=== PATIENT | male | born 1955 | race Caucasian/White ===

== ENCOUNTER 2019-09-21 19:36 | Emergency (ER) | payer MEDICARE, MEDICAID, SELFPAY ==
--- NOTE | 2019-09-21 19:38 | ED_ITS ---
Entered by Karma Montana, acting as scribe for Mojgan Coleman MD HPI - Altered Mental Status General: Chief Complaint: Dizziness Stated Complaint: Unresponsive Time Seen by Provider: 09/21/19 19:38 Source: patient and EMS Mode of arrival: EMS Limitations: no limitations History of Present Illness: HPI narrative: 64 y/o male presents to the ED post unresponsive episode . EMS reports he was eating dinner at [employer] with his family when this occurred. Family states this is the first outing he has had in several months due to a brain virus . Pt states he started to feel weak and dizzy and broke out into a cold sweat. He decided to lay his head down on the table for a moment, and then proceeded to have an unresponsive episode, according to family. Pt was also incontinent of urine. Upon arrival at [facility], pt is alert, oriented and has no complaints. complaint: other (Unresponsive Episode) Onset (ago): hour(s) Severity: mild Associated symptoms: Reports no associated symptoms Review of Systems Const: Denies: fever or chills Eyes: Denies: change in vision ENMT: Denies: throat pain or mouth pain Card: Denies: chest pain Resp: Denies: shortness of breath GI: Denies: abdominal pain, nausea, vomiting or diarrhea Musc: Denies: back pain or joint pain Skin/Breast: Denies: rash Neuro: Denies: headache or behavioral changes Endo: Denies: excessive urination Abraham/Lymph: Denies: easy bruising All/Imm: Denies: hives PFSH ED PFSH: Statuses (acute, chronic, etc) shown below reflect problem list status as previously entered and may not be historically accurate Medical History (Updated 09/21/19 @ 22:09 by Mojgan Coleman MD) CKD (chronic kidney disease), stage III (Chronic) Encephalitis due to human herpes simplex virus (HSV) (Acute) GERD (gastroesophageal reflux disease) (Chronic) Mixed hyperlipidemia (Acute) Neuropathy (Acute) Renovascular hypertension (Chronic) Severe chronic obstructive pulmonary disease (Chronic) Surgical History (Updated 09/18/19 @ 14:09 by Shruti Wilcox DO) H/O hernia repair (Acute) Family History (Updated 09/18/19 @ 13:58 by Mariluz Barksdale LPN) Other Diabetes Social History Smoking and tobacco status: former smoker Alcohol intake: never Physical Exam Const: COMMON NORMALS: no apparent distress, oriented x3 and healthy appearing HENMT: COMMON NORMALS: normocephalic and external nose normal HEAD & SCALP: normocephalic NOSE: external nose normal Eye: COMMON NORMALS: PERRL PUPIL: Yes PERRL Neck/C-Spine: COMMON NORMALS: full ROM and no lymphadenopathy Chest: COMMONS NORMALS: inspection of chest normal Resp: COMMON NORMALS: normal respiratory effort, no use of accessory muscles and clear to auscultation bilaterally AUSCULTATION: clear to auscultation bilaterally Cardio: COMMON NORMALS: regular rate and regular rhythm RATE: regular rate RHYTHM: regular rhythm GI: COMMON NORMALS: normal to inspection, nondistended, normoactive bowel sounds, soft to palpation, non-tender and no masses PALPATION: Yes soft Back/Pelvis: THORACIC SPINE/UPPER BACK: Yes normal to inspection Extremity: COMMON NORMALS: normal to inspection, full ROM and normal capillary refill Neuro: COMMON NORMALS: oriented x3 Psych: COMMON NORMALS: mental status grossly normal and cooperative Skin: COMMON NORMALS: no rashes or lesions noted GENERAL SKIN EXAM: no rashes or lesions noted Course Vital Signs: Vital signs: Vital Signs Temperature 98.2 F 09/21/19 22:51 Pulse Rate 77 09/21/19 22:51 Respiratory Rate 18 09/21/19 22:51 Blood Pressure 121/80 09/21/19 22:51 Pulse Oximetry 94 09/21/19 22:51 MDM - Altered Mental Status MDM Narrative: Medical decision making narrative: Patient presents with a syncopal event likely from dehydration. Patient feels much improved after IV fluids and is requesting discharge. I did offer him admission but he states he feels improved and would like to go home. Head CT here is normal. He is to follow-up with primary care doctor in 3 to 5 days and return if worsening. Lab Data: Labs: Lab Results 09/21/19 09/21/19 09/21/19 Range/Units 20:00 20:00 20:00 WBC 9.0 (4.0-10.0) 10^3/ uL RBC 4.37 (4.1-5.3) 10^6/u L Hgb 12.3 (11.7-16.6) g/dL Hct 40.6 L (42.0-52.0) % MCV 92.9 (80-94) fL MCH 28.1 (28.0-34.0) pg MCHC 30.3 (30.0-36.0) g/dL RDW 14.5 (12.1-15.1) % Plt Count 283 (130-400) 10^3/c mm MPV 11.1 H (7.4-10.4) fL Neut % (Auto) 56.7 % Lymph % (Auto) 28.9 % [place] % (Auto) 7.1 % Eos % (Auto) 6.5 % Baso % (Auto) 0.6 % Neut # (Auto) 5.1 (1.8-7.7) 10^3/u L Lymph # (Auto) 2.6 (0.8-4.8) 10^3/u L [place] # (Auto) 0.6 (0.2-0.9) 10^3/u L Eos # (Auto) 0.6 (0.0-0.8) 10^3/u L Baso # (Auto) 0.1 (0.0-0.1) 10^3/u L Nucleated RBC % (a uto) 0 % Nucleated RBCs # 0.0 /100WBC Sodium 137 (136-145) mmol/L Potassium 5.3 H (3.5-5.1) mmol/L Chloride 98 (98-107) mmol/L Carbon Dioxide 27 (22-29) mmol/L Anion Gap 17.3 (5-19) BUN 27 H (8-23) mg/dL Creatinine 2.4 H (0.7-1.2) mg/dL GFR Calculation 27.2 L (90-130) mL/min Glucose 130 H (74-106) mg/dL Calcium 10.0 (8.8-10.2) mg/Dl Total Bilirubin 0.3 (0.15-1.2) mg/dL AST 12 (0-40) U/L ALT 7 (0-41) U/L Alkaline Phosphata se 126 (40-130) IU/L Troponin T Baselin e 95 H (0-15) ng/mL Troponin T 120 Min federico (0-15) ng/mL Delta Troponin T (0-10) ABS# Total Protein 7.8 (6.6-8.7) g/dL Albumin 4.3 (3.5-5.2) g/dL Globulin 3.5 (1.3-4.6) g/dL Ethyl Alcohol < 10 (0-10) mg/dL 09/21/19 Range/Units 21:35 WBC (4.0-10.0) 10^3/ uL RBC (4.1-5.3) 10^6/u L Hgb (11.7-16.6) g/dL Hct (42.0-52.0) % MCV (80-94) fL MCH (28.0-34.0) pg MCHC (30.0-36.0) g/dL RDW (12.1-15.1) % Plt Count (130-400) 10^3/c mm MPV (7.4-10.4) fL Neut % (Auto) % Lymph % (Auto) % [place] % (Auto) % Eos % (Auto) % Baso % (Auto) % Neut # (Auto) (1.8-7.7) 10^3/u L Lymph # (Auto) (0.8-4.8) 10^3/u L [place] # (Auto) (0.2-0.9) 10^3/u L Eos # (Auto) (0.0-0.8) 10^3/u L Baso # (Auto) (0.0-0.1) 10^3/u L Nucleated RBC % (a uto) % Nucleated RBCs # /100WBC Sodium (136-145) mmol/L Potassium (3.5-5.1) mmol/L Chloride (98-107) mmol/L Carbon Dioxide (22-29) mmol/L Anion Gap (5-19) BUN (8-23) mg/dL Creatinine (0.7-1.2) mg/dL GFR Calculation (90-130) mL/min Glucose (74-106) mg/dL Calcium (8.8-10.2) mg/Dl Total Bilirubin (0.15-1.2) mg/dL AST (0-40) U/L ALT (0-41) U/L Alkaline Phosphata se (40-130) IU/L Troponin T Baselin e (0-15) ng/mL Troponin T 120 Min federico 86.25 H (0-15) ng/mL Delta Troponin T -8.75 L (0-10) ABS# Total Protein (6.6-8.7) g/dL Albumin (3.5-5.2) g/dL Globulin (1.3-4.6) g/dL Ethyl Alcohol (0-10) mg/dL Imaging Data^: CXR: Attestation: I personally reviewed and interpreted this imaging study as follows: My impression: no acute abnormaity CT Head: Radiologist's impression: Ordering Physician: Mojgan Coleman MD Date of Service: 09/21/19 Procedure(s): CT head wo con* [id number] Accession Number(s): [id number] cc: Mojgan Coleman MD PROCEDURE INFORMATION: Exam: CT Head Without Contrast Exam date and time: 09/21/2019 8:04 PM Age: 64 years old Clinical indication: Dizziness; Additional info: AMS TECHNIQUE: Imaging protocol: Computed tomography of the head without contrast. Total DLP: 851.65 mGy-cm Radiation optimization: All CT scans at this facility use at least one of these dose optimization techniques: automated exposure control; mA and/or kV adjustment per patient size (includes targeted exams where dose is matched to clinical indication); or iterative reconstruction. COMPARISON: CT head wo con* [id number] 2019-06-11 14:21 FINDINGS: Brain: Right parietal temporal chronic infarct. Small chronic right occipital infarct. Small chronic right caudate lacunar infarct. Ventricles: Right lateral ventricle ex vacuo dilatation from volume loss. Bones/joints: Unremarkable. No acute fracture. Sinuses: Visualized sinuses are unremarkable. No fluid levels. Mastoid air cells: Visualized mastoid air cells are well aerated. Soft tissues: Unremarkable. CT/CT head wo con* [id number] IMPRESSION: No acute intracranial abnormality. EKG Data^: EKG 1: Attestation: I personally reviewed and interpreted this EKG as follows: EKG interpretation date: 09/21/19 EKG interpretation time: 20:12 Interpretation: sinus lady hr [address] or t wave abnormalities qrs 113 qtc 400 EKG 2: Attestation: I personally reviewed and interpreted this EKG as follows: EKG interpretation date: 09/21/19 EKG interpretation time: 21:54 Interpretation: nsr hr [address] or t wave abnormalities Discharge Plan Discharge Patient Disposition: Home, Self-Care Clinical Impression: Dehydration Syncope Qualifiers: Syncope type: unspecified Qualified Code(s): R55 - Syncope and collapse Condition: Stable Prescriptions: No Action atorvastatin 40 mg tablet 40 mg PO ONCE Qty: 90 RF: 0 albuterol sulfate [ProAir HFA] 90 mcg/actuation HFA aerosol inhaler 2 puff INHALATION Q6H PRN (Reason: shortness of breath) Qty: 8.5 RF: 3 gabapentin 800 mg tablet 800 mg PO TID Qty: 270 RF: 2 amlodipine 10 mg tablet 10 mg PO ONCE Qty: 90 RF: 1 famotidine 20 mg tablet 20 mg PO BID Qty: 90 RF: 1 Incruse Ellipta 62.5 mcg/actuation blister with device 1 inh INHALATION Q24H Qty: 30 RF: 2 metoprolol tartrate 50 mg tablet 75 mg PO BID Qty: 90 RF: 1 Brovana 15 mcg/2 mL solution for nebulization 15 mcg INHALATION BID RF: 0 aspirin 81 mg tablet,delayed release (DR/EC) 81 mg PO ONCE RF: 0 budesonide [Pulmicort] 0.5 mg/2 mL suspension for nebulization 0.5 mg INHALATION BID RF: 0 Discharge Orders: Discharge Order (Routine); Ordered 09/21/19 Ordered By: Mojgan Coleman Referrals: Shruti Wilcox DO [Primary Care Provider] - Discharge Diet: Advance as tolerated Discharge Activity: Resume usual activity Patient Instructions: Syncope (ED) Discharge Date/Time: 09/21/19 22:52 Coding Level of Care Code 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
--- NOTE | 2019-09-21 19:40 | XR_ITS ---
WS: [id number] CHEST XRAY TECHNIQUE: Portable chest. CLINICAL INFORMATION: ams COMPARISON: July 05, 2019 FINDINGS: Heart: Normal cardiac silhouette. Lungs: Chronic emphysematous changes. Biapical fibrosis. Chronic elevation left hemidiaphragm. No acu te infiltrates. Bones: Normal visualized bony structures. XR/XR chest 1V portable [id number] IMPRESSION: Chronic emphysematous changes with biapical pleural thickening and fibrosis. No new infiltrates.
--- NOTE | 2019-09-21 19:41 | ECG_ITS ---
Measurements Intervals [place] Rate: 57 P: 78 GA: 163 QRS: 65 QRSD: 113 T: 72 QT: 405 QTc: 397 SINUS BRADYCARDIA POSSIBLE LEFT ATRIAL ENLARGEMENT [-0.1mV P WAVE IN V1/V2] INCOMPLETE RIGHT BUNDLE BRANCH BLOCK [90+ ms QRS DURATION, TERMINAL R IN V1/V2, 40+ ms S IN I/aVL/V4/V5/V6] INTERPRETATION BASED ON A DEFAULT AGE OF 40 YEARS Compared to ECG 06/11/2019 12:22:33 Sinus tachycardia no longer present Electronically Signed On 09-22-2019 14:37:26 [employer]ER [employer] by Blayne Vivas M.D. [id number] zhou
[2019-09-21 19:47] VITALS: BP 135/68; PULSE 65; RESP 14; TEMP 36.4; O2SAT 94; BMI 16.7
[2019-09-21] MEDS: sodium chloride 0.9% 1,000 ML 999 ML IV ×2 (20:09→21:05)
[2019-09-21 20:18] LABS: Basophils # 0.1 10^3/uL (0.0-0.1); Basophils % 0.6 %; Eosinophils # 0.6 10^3/uL (0.0-0.8); Eosinophils % 6.5 %; Hematocrit 40.6 % (42.0-52.0); Hemoglobin 12.3 g/dL (11.7-16.6); Lymphocytes # 2.6 10^3/uL (0.8-4.8); Lymphocytes % 28.9 %; Mean Corpuscular HGB Conc 30.3 g/dL (30.0-36.0); Mean Corpuscular Hemoglobin 28.1 pg (28.0-34.0); Mean Corpuscular Volume 92.9 fL (80-94); Mean Platelet Volume 11.1 fL (7.4-10.4); Monocytes # 0.6 10^3/uL (0.2-0.9); Monocytes % 7.1 %; Neutrophils # 5.1 10^3/uL (1.8-7.7); Neutrophils % 56.7 %; Nucleated Red Blood Cells % 0 %; Platelet Count 283 10^3/cmm (130-400); Red Blood Count 4.37 10^6/uL (4.1-5.3); Red Cell Distribution Width 14.5 % (12.1-15.1)
--- NOTE | 2019-09-21 20:29 | PC.NURSE ---
hygiene clean performed, pt put in gown.
[2019-09-21 20:37] LABS: Alanine Aminotransferase 7 U/L (0-41); Albumin Level 4.3 g/dL (3.5-5.2); Alkaline Phosphatase 126 IU/L (40-130); Anion Gap 17.3 (5-19); Aspartate Amino Transferase 12 U/L (0-40); Blood Urea Nitrogen 27 mg/dL (8-23); Carbon Dioxide 27 mmol/L (22-29); Chloride 98 mmol/L (98-107); Globulin 3.5 g/dL (1.3-4.6); Glomerular Filtration Rate 27.2 mL/min (90-130); Glucose 130 mg/dL (74-106); Potassium 5.3 mmol/L (3.5-5.1); Sodium 137 mmol/L (136-145); Total Bilirubin 0.3 mg/dL (0.15-1.2); Total Protein 7.8 g/dL (6.6-8.7)
[2019-09-21 20:38] LABS: Alcohol Level < 10 mg/dL (0-10); Troponin(5th) Baseline 95 ng/mL (0-15)
[2019-09-21 21:06] VITALS: BP 127/65; PULSE 61; RESP 17; O2SAT 99
[2019-09-21 21:25] VITALS: RESP 17; O2SAT 98
[2019-09-21] MEDS: HYDROmorphone 1 mg/mL INJ 1 mL 0.5 MG IVP (21:25)
--- NOTE | 2019-09-21 21:41 | ECG_ITS ---
Measurements Intervals [place] Rate: 57 P: 78 NH: 163 QRS: 65 QRSD: 113 T: 72 QT: 405 QTc: 397 SINUS BRADYCARDIA POSSIBLE LEFT ATRIAL ENLARGEMENT [-0.1mV P WAVE IN V1/V2] INCOMPLETE RIGHT BUNDLE BRANCH BLOCK [90+ ms QRS DURATION, TERMINAL R IN V1/V2, 40+ ms S IN I/aVL/V4/V5/V6] INTERPRETATION BASED ON A DEFAULT AGE OF 40 YEARS Compared to ECG 06/11/2019 12:22:33 Sinus tachycardia no longer present Electronically Signed On 09-22-2019 14:42:57 [employer] FIELD COORDINATOR by Blayne Vivas M.D. [id number] zhou
[2019-09-21 22:02] LABS: Troponin 5 2HR 86.25 ng/mL (0-15)
[2019-09-21 22:03] LABS: Troponin 5 2HR Delta -8.75 ABS# (0-10)
[2019-09-21 22:51] VITALS: BP 121/80; PULSE 77; RESP 18; TEMP 36.8; O2SAT 94
== END 2019-09-21 22:52 | disposition home or self-care (01) ==
PROVIDERS: Emergency Provider Emergency Medicine; Family Provider Family Medicine; PCP Family Medicine
DX: E86.0 Dehydration (principal); R55 Syncope and collapse; Z79.82 Long term (current) use of aspirin; N18.3 Chronic kidney disease, stage 3 (moderate); E78.5 Hyperlipidemia, unspecified; Z87.891 Personal history of nicotine dependence; J44.9 Chronic obstructive pulmonary disease, unspecified; Z79.899 Other long term (current) drug therapy
CPT/HCPCS: 36415; 70450; 71045; 80053; 80307; 84484; 85025; 93005; 96360; 96361; 96375; 99283; J1170; J7030

== ENCOUNTER 2019-09-26 08:45 | Outpatient (CLI) | payer MEDICARE, MEDICAID, SELFPAY ==
[2019-09-26 15:28] LABS: Ferritin 316 ng/mL (30-400); Iron 62 ug/dL (59-158); Percent Saturation 25.7 % (20-50); Total Iron Binding Capacity 241 mg/dL; Unsaturated Iron Binding 179 ug/dL (112-347)
[2019-09-26 15:44] LABS: Vitamin B12 366 pg/mL (232-1245)
[2019-09-26 15:47] LABS: Basophils % 0.5 %; Eosinophils # 0.5 10^3/uL (0.0-0.8); Eosinophils % 6.3 %; Hematocrit 41.4 % (42.0-52.0); Hemoglobin 12.4 g/dL (11.7-16.6); Lymphocytes # 2.3 10^3/uL (0.8-4.8); Lymphocytes % 29.2 %; Mean Corpuscular Hemoglobin 28.9 pg (28.0-34.0); Mean Corpuscular Volume 96.5 fL (80-94); Mean Platelet Volume 11.7 fL (7.4-10.4); Monocytes # 0.7 10^3/uL (0.2-0.9); Monocytes % 8.3 %; Neutrophils # 4.3 10^3/uL (1.8-7.7); Neutrophils % 55.6 %; Nucleated Red Blood Cells % 0 %; Platelet Count 252 10^3/cmm (130-400); Red Blood Count 4.29 10^6/uL (4.1-5.3); Red Cell Distribution Width 14.4 % (12.1-15.1); White Blood Count 7.8 10^3/uL (4.0-10.0)
[2019-09-26 15:55] LABS: Folate Level 4.7 ng/mL (4.5-32.2)
== END 2019-09-26 08:46 | disposition home or self-care (01) ==
PROVIDERS: Family Provider Family Medicine; PCP Family Medicine; Visit Provider Internal Medicine Hematology & Oncology
DX: D47.3 Essential (hemorrhagic) thrombocythemia (principal)
CPT/HCPCS: 82607; 82728; 82746; 83540; 83550; 85025; 85045

== ENCOUNTER 2019-09-27 14:28 | Outpatient (CLI) | payer MEDICARE, MEDICAID, SELFPAY ==
--- NOTE | 2019-09-27 15:21 | ONC FU_ITS ---
Dr. Mazariegos follow up note Patient: Saul Lynn Unit #: [id number]: 1955 Dicatated By: Mingo Mazariegos M.D.Date of Visit:Sep 27, 2019 Onc Med Follow-up/Prog Note History of Present Illness: Mr. Saul Lynn, is a 64-year-old gentleman with history of B12 deficiency, diagnosed in 2007, as per patient he was told his B12 was close to 0 and he was B12 injection every week for 5 weeks then maintenance dose and eventually started on oral B12 supplements. As per patient at that time he was having frequent falls and lower extremity weakness and numbness and with B12 supplement his symptoms improved. History of mild anemia but never required blood transfusion, his iron level usually stay high, underwent colonoscopy in [place] about 2 years ago, as per patient it was normal, never had EGD. Patient has history of advanced stage pulmonary disease on home oxygen and also on various nebulizers including Pulmicort twice a day. History of frequent left lung collapse, status post thoracoscopy and chest tube placement multiple times in the past. Recent history of encephalitis due to herpes simplex treated successfully with acyclovir. Patient denies any history of jaundice, denies any palpitation or shortness of breath at rest but dyspnea on exertion which is a chronic problem due to underlying lung condition. Denies any chest pain, denies any peripheral numbness. Denies any heartburn indigestion denies any melena or hematochezia, denies any hematuria. Denies any night sweats or weight loss or recurrent fever, denies any peripheral lymphadenopathy or abdominal fullness. Came for follow-up, denies any specific complaints, no fever or chills, no nausea vomiting, no night sweats, no weight loss, no abdominal fullness, no diarrhea constipation. Medications: Albuterol Sulfate 1 Puff(s) Aerosol Powder, Breath Activated Inhalation q 4 hours, amLODIPine Besylate 1 Tablet (of 10 mg) Oral daily, Aspirin 1 Tablet (of 81 mg) Oral daily, Brovana 1 (15 mcg/2mL) Nebulization solution Inhalation b.i.d., Budesonide 1 (0.5 mg/2mL) Suspension Inhalation b.i.d., cloNIDine HCl 1 Tablet (of 0.1 mg) Oral b.i.d., Famotidine 1 Tablet (of 20 mg) Oral b.i.d., Gabapentin 1 Tablet (of 800 mg) Oral t.i.d., Incruse Ellipta 1 (62.5 mcg/inh) Aerosol Powder, Breath Activated Inhalation daily, Lipitor 1 Tablet (of 40 mg) Oral at bedtime, Metoprolol Tartrate 1.5 Tablet (of 50 mg) Oral b.i.d., raNITIdine HCl 1 Tablet (of 150 mg) Oral daily Allergies: Demerol and Singulair. Review of Systems: Constitutional - Appetite is poor and weight is decreasing. No fever, chills, hot flashes. Positive for night sweats. Energy level is poor, ENMT - No sinus congestion/drainage. No mouth sores. No sore throat. Positive for difficulty swallowing, Hematologic/Lymphatic - Positive for easy bruising/bleeding, Respiratory - Positive for shortness of breath and cough. No pleuritic pain or hemoptysis, Cardiovascular - No angina pain. No palpitations, Gastrointestinal - Postive for nausea, no vomiting. Positive for heartburn and acid reflux. Positive for diarrhea, no constipation. Positive for dark stools, Genitourinary (M) - No dysuria or hematuria. Positive for urinary frequency. No urgency. Positive for incontinence, Musculoskeletal - Positive for joint pain, Neurologic - Pt has hx of stroke, positive for residual numbness in extremities, Psychiatric - Positive for anxiety, depression, and insomnia. Vital Signs: Vitals are not available for this patient. Performance Status: 2 - Ambulatory/capable of all self-care, unable to perform any work activities. Up and about more than 50% of waking hours. (ECOG) Physical Examination: ENMT - No oral exudates, ulcers, masses, thrush or mucositis. Oropharynx clear. Tongue normal, Respiratory - Lungs are clear to auscultation without rhonchi or wheezing, Cardiovascular - Regular rate and rhythm of heart, Abdomen - Non-tender, non-distended,Good bowel sounds. No guarding or rebound tenderness. No pulsatile masses, Extremities - 1+ edema bilaterally. Lab/Imaging: Test performed on Sep 26, 2019 08:45 Ferritin 316 ng/mL Folate 4.7 ng/mL Vitamin B12 366 pg/mL % Iron Saturation 25.7 % Iron, Total 62 mcg/dL TIBC 241 mcg/dL Reticulocyte Count 0.6900 % WBC 7.8 10 3/uL RBC 4.29 10^12/L HGB 12.4 g/dL HCT 41.4 % MCV 96.5 fL MCH 28.9 pg MCHC 30.0 g/dL Platelet Count 252 10^9/L RDW 14.4 % MPV 11.7 fL Lymphocytes 2.3 10^9/L Neutrophils 0.0 10 3/uL Monocytes 0.7 10^9/L Eosinophils 0.5 10^9/L Basophils 0.0 10^9/L Neutrophil % 6.3 % Manual Lymphocytes 29.2 % Manual Monocytes 8.3 % Manual Eosinophils 6.3 % Manual Basophils 0.5 % NRBCs 0.0 /100 WBC Test performed on Aug 14, 2019 10:45 UIBC 149 ug/dL Lymphocyte % 23.0 % Monocyte % 7.9 % Eosinophil % 6.3 % Basophils % 0.9 % Impression: Mild leukocytosis, with a normal differential and thrombocytosis with a mild anemia per CBC done on 07/25/2019 which showed white blood count 14.1, hemoglobin 11.3, hematocrit 36.7 platelets 556,000 and MCV 95.8 Advanced stage pulmonary disease, on home oxygen and on Pulmicort twice a day History of frequent left lung collapse status post thoracoscopy status post multiple chest tube placement. History of B12 deficiency, diagnosed in 2007, at that time treated with parenteral B12. Recent History of encephalitis due to herpes simplex virus, treated successfully with acyclovir Plan: Discussed with patient regarding his labs white blood count 7.8 hemoglobin 12.4 crit 41.4 platelets 252,000 ferritin 316 iron saturation 25.7 white count B12 366 TIBC 241 reticulocyte count percentage 0.69 Clinically, patient is doing well, his follow-up lab workup shows resolution of leukocytosis and improvement in his hemoglobin and normal platelet count and his iron studies and B12 level is also within normal limits. At this point we'll continue monitor return to clinic in 3 months with CBC and B12 level as patient has history of B12 deficiency in the past. Signed By: Mingo Mazariegos M.D. <<Signature on File>>
== END 2019-09-27 14:29 | disposition home or self-care (01) ==
LOC: ONCMED 14:28
PROVIDERS: Family Provider Family Medicine; PCP Family Medicine; Visit Provider Internal Medicine Hematology & Oncology
DX: D47.3 Essential (hemorrhagic) thrombocythemia (principal); F41.8 Other specified anxiety disorders; I69.998 Other sequelae following unspecified cerebrovascular disease; R20.8 Other disturbances of skin sensation; G47.00 Insomnia, unspecified; J98.9 Respiratory disorder, unspecified; Z99.81 Dependence on supplemental oxygen; Z79.51 Long term (current) use of inhaled steroids; Z79.82 Long term (current) use of aspirin
CPT/HCPCS: G0463

== ENCOUNTER 2019-12-27 16:20 | Outpatient (CLI) | payer MEDICARE, MEDICAID, SELFPAY ==
[2019-12-27 17:09] LABS: Basophils # 0.1 10^3/uL (0.0-0.1); Basophils % 0.6 %; Eosinophils % 10.5 %; Hematocrit 43.9 % (42.0-52.0); Hemoglobin 12.7 g/dL (11.7-16.6); Lymphocytes # 2.9 10^3/uL (0.8-4.8); Lymphocytes % 29.1 %; Mean Corpuscular HGB Conc 28.9 g/dL (30.0-36.0); Mean Corpuscular Hemoglobin 28.1 pg (28.0-34.0); Mean Corpuscular Volume 97.1 fL (80-94); Mean Platelet Volume 10.9 fL (7.4-10.4); Monocytes # 0.5 10^3/uL (0.2-0.9); Monocytes % 5.4 %; Neutrophils # 5.3 10^3/uL (1.8-7.7); Nucleated Red Blood Cells % 0 %; Platelet Count 300 10^3/cmm (130-400); Red Blood Count 4.52 10^6/uL (4.1-5.3); Red Cell Distribution Width 14.9 % (12.1-15.1); White Blood Count 9.8 10^3/uL (4.0-10.0)
[2019-12-27 18:38] LABS: Chol HDL Ratio 2.78 mg/dL (1.0-5.00); Cholesterol 111 mg/dL (0-200); HDL Cholesterol 40 mg/dL (60-100); LDL Cholesterol Calculated 48 mg/dL (50-129); Triglycerides 114 mg/dL (0-150)
[2019-12-27 18:46] LABS: Vitamin B12 398 pg/mL (232-1245)
== END 2019-12-27 16:21 | disposition home or self-care (01) ==
LOC: ONCMED 17:12
PROVIDERS: Family Provider Family Medicine; PCP Family Medicine; Visit Provider Internal Medicine Hematology & Oncology
DX: D47.3 Essential (hemorrhagic) thrombocythemia (principal); N18.3 Chronic kidney disease, stage 3 (moderate); E78.5 Hyperlipidemia, unspecified; D64.9 Anemia, unspecified
CPT/HCPCS: 36415; 80061; 82607; 85025

== ENCOUNTER → 2020-02-16 13:38 | Outpatient (BNVA) | payer MEDICARE, MEDICAID, SELFPAY | PROVIDERS: Family Provider Family Medicine; PCP Family Medicine; Visit Provider Family Medicine | DX: N18.3 Chronic kidney disease, stage 3 (moderate) (principal); T20.24XA Burn of second degree of nose (septum), initial encounter | CPT/HCPCS: 80048 ==

== ENCOUNTER → 2020-02-19 14:43 | Outpatient (BNVA) | payer MEDICARE, MEDICAID, SELFPAY | PROVIDERS: Family Provider Family Medicine; PCP Family Medicine; Visit Provider Family Medicine | DX: N18.3 Chronic kidney disease, stage 3 (moderate) (principal) | CPT/HCPCS: 82043 ==

== ENCOUNTER 2020-02-22 14:26 | Outpatient (CLI) | payer MEDICARE, MEDICAID, SELFPAY | END 2020-02-22 14:27 | disposition home or self-care (01) | LOC: WOUND 14:30 | PROVIDERS: Family Provider Family Medicine; PCP Family Medicine; Visit Provider Nurse Practitioner Family | DX: T20.24XA Burn of second degree of nose (septum), initial encounter (principal); X08.8XXA Exposure to other specified smoke, fire and flames, initial encounter | CPT/HCPCS: 99203; 99212 ==

== ENCOUNTER 2020-02-29 14:21 | Outpatient (CLI) | payer MEDICARE, MEDICAID, SELFPAY | END 2020-02-29 14:22 | disposition home or self-care (01) | LOC: WOUND 14:25 | PROVIDERS: Family Provider Family Medicine; PCP Family Medicine; Visit Provider Nurse Practitioner Family | DX: T20.24XA Burn of second degree of nose (septum), initial encounter (principal); X08.8XXA Exposure to other specified smoke, fire and flames, initial encounter | CPT/HCPCS: 99212 ==

== ENCOUNTER 2020-03-07 14:49 | Outpatient (CLI) | payer MEDICARE, MEDICAID, SELFPAY ==
[2020-03-07 15:28] LABS: Basophils # 0.1 10^3/uL (0.0-0.1); Basophils % 1.4 %; Eosinophils # 0.5 10^3/uL (0.0-0.8); Eosinophils % 5.4 %; Hematocrit 38.2 % (42.0-52.0); Hemoglobin 11.3 g/dL (11.7-16.6); Lymphocytes # 1.2 10^3/uL (0.8-4.8); Lymphocytes % 14.4 %; Mean Corpuscular HGB Conc 29.6 g/dL (30.0-36.0); Mean Corpuscular Hemoglobin 27.6 pg (28.0-34.0); Mean Corpuscular Volume 93.2 fL (80-94); Mean Platelet Volume 10.7 fL (7.4-10.4); Monocytes # 0.3 10^3/uL (0.2-0.9); Monocytes % 3.6 %; Neutrophils # 6.2 10^3/uL (1.8-7.7); Neutrophils % 74.7 %; Nucleated Red Blood Cells % 0 %; Platelet Count 438 10^3/cmm (130-400); Red Cell Distribution Width 14.5 % (12.1-15.1); White Blood Count 8.3 10^3/uL (4.0-10.0)
[2020-03-07 15:55] LABS: Cholesterol 188 mg/dL (0-200); HDL Cholesterol 40 mg/dL (60-100); LDL Cholesterol Calculated 117 mg/dL (50-129); LDL HDL Ratio 2.93 RATIO (0.00-3.22); Triglycerides 153 mg/dL (0-150)
[2020-03-07 16:14] LABS: 25 Hydroxy Vitamin D 7 ng/mL (30-100); Albumin Level 3.5 g/dL (3.5-5.2); Anion Gap 27.1 (5-19); Blood Urea Nitrogen 59 mg/dL (8-23); Calcium 8.8 mg/dL (8.5-10.5); Carbon Dioxide 21 mmol/L (22-29); Chloride 92 mmol/L (98-107); Glomerular Filtration Rate 7.3 mL/min (90-130); Glucose 141 mg/dL (65-115); Potassium 5.1 mmol/L (3.5-5.1); Sodium 135 mmol/L (136-145)
[2020-03-07 16:18] LABS: Calcium 8.7 mg/dL (8.5-10.5); Parathyroid Hormone 463.4 pg/mL (15-65)
[2020-03-07 17:58] LABS: Complement C3 139 mg/dL (90-180)
[2020-03-08 10:15] LABS: PROTEIN, TOTAL 7.5 g/dL (6.1-8.1)
[2020-03-08 13:05] LABS: ABNORMAL PROTEIN BAND 1 0.2 g/dL (NONE DETECTED); ALBUMIN 3.4 g/dL (3.8-4.8); ALPHA 1 GLOBULIN 0.8 g/dL (0.2-0.3); BETA 1 GLOBULIN 0.4 g/dL (0.4-0.6); BETA 2 GLOBULIN 0.7 g/dL (0.2-0.5); GAMMA GLOBULIN 1.3 g/dL (0.8-1.7)
[2020-03-08 15:55] LABS: KAPPA LIGHT CHAIN, FREE, SERUM 211.2 mg/L (3.3-19.4); KAPPA/LAMBDA LIGHT CHAINS FREE 1.18 (0.26-1.65); LAMBDA LIGHT CHAIN, FREE, SERU 179.2 mg/L (5.7-26.3)
== END 2020-03-07 14:50 | disposition home or self-care (01) ==
LOC: LAB 14:55
PROVIDERS: PCP Family Medicine; Visit Provider Internal Medicine Nephrology
DX: N18.4 Chronic kidney disease, stage 4 (severe) (principal); R80.1 Persistent proteinuria, unspecified
CPT/HCPCS: 80061; 80069; 82306; 82310; 83883; 83970; 84155; 84165; 85025; 86160

== ENCOUNTER 2020-03-07 17:32 | Inpatient (IN) | payer MEDICARE, MEDICAID, SELFPAY ==
[2020-03-07] VITALS (9 sets, daily range): BP systolic 167–205; BP diastolic 91–128; PULSE 92–105; RESP 14–24; TEMP 36.7; O2SAT 95–100; BMI 15.3
--- NOTE | 2020-03-07 17:41 | XR_ITS ---
WS: [id number] PORTABLE CHEST HISTORY: sob COMPARISON: 09/21/2019 Marked pulmonary hyperinflation. Marked biapical pleural thickening and scarring. No pleural effusion or pneumothorax. Cardiac size: Normal. Mediastinum/Aorta: Atherosclerosis aorta. No osseous abnormality seen. XR/XR chest 1V portable [id number] IMPRESSION: Severe emphysema with advanced biapical pleural thickening and scarring which i s stable.
--- NOTE | 2020-03-07 17:42 | ECG_ITS ---
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 Measurements Intervals [place] Rate: 96 P: 85 MT: 164 QRS: 77 QRSD: 110 T: 79 QT: 351 QTc: 443 Interpretive Statements SINUS RHYTHM POSSIBLE LEFT ATRIAL ENLARGEMENT [-0.1mV P WAVE IN V1/V2] INCOMPLETE RIGHT BUNDLE BRANCH BLOCK [90+ ms QRS DURATION, TERMINAL R IN V1/V2, 40+ ms S IN I/aVL/V4/V5/V6] Compared to ECG 09/21/2019 20:12:33 Sinus bradycardia no longer present Electronically Signed On 03-07-2020 21:14:15 CDT by Glenda Flores M.D. [id number]
--- NOTE | 2020-03-07 17:43 | W.ED.WEAKNES ---
HPI - Weakness General: Chief complaint: Recheck/Abnormal Lab/Rx Stated complaint: ABNORMAL LABS Time Seen by Provider: 03/07/20 17:41 Source: patient and EMS Mode of arrival: EMS Limitations: no limitations History of Present Illness: HPI Narrative: 64-year-old male who has a history of chronic kidney disease states that he has been having generalized weakness and decreased intake and states he had lab work done today and had elevated creatinine at 7. Patient states he has felt quite weak. He denies any fever. He states he had some decreased urination as well. Denies any vomiting or diarrhea. Patient is hypertensive here. Associated symptoms: Denies chest pain, chills, dysuria, easy bruising, fever(s), headache(s), nausea or vomiting Review of Systems Const: Denies: fever(s), chills, body aches or change in appetite Eyes: Denies: blurry vision or eye discomfort ENMT: Denies: throat pain or dental pain Card: Denies: chest pain Resp: Denies: dyspnea GI: Denies: abdominal pain, nausea, vomiting or diarrhea : Denies: dysuria Musc: Denies: neck pain or back pain Skin/Breast: Denies: rash Neuro: Reports: weakness in extremities; Denies: headache(s) Psych: Denies: depression Abraham/Lymph: Denies: easy bruising All/Imm: Denies: urticaria PFSH ED PFSH: Medical History CKD (chronic kidney disease), stage III COPD (chronic obstructive pulmonary disease) Encephalitis due to human herpes simplex virus (HSV) Essential (primary) hypertension GERD (gastroesophageal reflux disease) Mixed hyperlipidemia Neuropathy Pulmonary fibrosis Severe chronic obstructive pulmonary disease Surgical History H/O hernia repair Family History Other Diabetes Social History Smoking and tobacco status: former smoker Alcohol intake: never Physical Exam Const: COMMON NORMALS: no acute distress and patient oriented x3 GENERAL APPEARANCE: ill appearing HENMT: COMMON NORMALS: normocephalic and atraumatic HEAD & SCALP: normocephalic and atraumatic Eye: COMMON NORMALS: Equal, round and reactive pupils present and EOMs intact bilaterally PUPIL: Yes Equal, round and reactive pupils present Neck/C-Spine: COMMON NORMALS: full ROM and supple Chest: COMMONS NORMALS: normal inspection of the chest and normal palpation of entire chest wall Resp: COMMON NORMALS: normal respiratory effort, No retractions, No use of accessory muscles and clear to auscultation bilaterally AUSCULTATION: clear to auscultation bilaterally Cardio: COMMON NORMALS: regular rate, regular rhythm and No murmurs present (Cardio) RATE: regular rate RHYTHM: regular rhythm GI: COMMON NORMALS: Normal to inspection, nondistended, normoactive bowel sounds present, Soft to palpation, non-tender and no masses PALPATION: Yes Soft to palpation Extremity: COMMON NORMALS: normal to inspection and full ROM Neuro: COMMON NORMALS: patient oriented x3, moves all extremities and no focal motor deficits Psych: COMMON NORMALS: mental status grossly normal, Normal thought process present and cooperative THOUGHT PROCESS: Normal thought process present Skin: COMMON NORMALS: no rashes or lesions noted and no wounds GENERAL SKIN EXAM: no rashes or lesions noted Course Vital Signs: Vital signs: Vital Signs Temperature 98.1 F 03/07/20 17:36 Pulse Rate 102 H 03/07/20 19:58 Respiratory Rate 24 H 03/07/20 19:58 Blood Pressure 188/112 03/07/20 19:58 Pulse Oximetry 97 03/07/20 19:58 MDM - Weakness MDM Narrative: Medical decision making narrative: Patient presents here with acute kidney injury on top of chronic kidney disease. Patient does have an elevated BNP but has no signs of fluid retention at this time and is making urine. He has been hypertensive with a hypertensive urgency. Patient's blood pressure is improving here as well. Patient is not hyperkalemic. I spoke to hospitalist and will admit to the ICU. Lab Data: Labs: Lab Results 03/07/20 03/07/20 03/07/20 Range/Units 17:58 17:58 17:58 WBC 7.0 (4.0-10.0) 10^3/ uL RBC 4.07 L (4.1-5.3) 10^6/u L Hgb 11.2 L (11.7-16.6) g/dL Hct 38.0 L (42.0-52.0) % MCV 93.4 (80-94) fL MCH 27.5 L (28.0-34.0) pg MCHC 29.5 L (30.0-36.0) g/dL RDW 14.4 (12.1-15.1) % Plt Count 380 (130-400) 10^3/c mm MPV 10.8 H (7.4-10.4) fL Neut % (Auto) 79.5 % Lymph % (Auto) 13.4 % [place] % (Auto) 3.3 % Eos % (Auto) 2.3 % Baso % (Auto) 1.1 % Neut # (Auto) 5.6 (1.8-7.7) 10^3/u L Lymph # (Auto) 0.9 (0.8-4.8) 10^3/u L [place] # (Auto) 0.2 (0.2-0.9) 10^3/u L Eos # (Auto) 0.2 (0.0-0.8) 10^3/u L Baso # (Auto) 0.1 (0.0-0.1) 10^3/u L Nucleated RBC % (a uto) 0 % Nucleated RBCs # 0.0 /100WBC Sodium 134 L (136-145) mmol/L Potassium 5.0 (3.5-5.1) mmol/L Chloride 92 L (98-107) mmol/L Carbon Dioxide 18 L (22-29) mmol/L Anion Gap 29.0 H (5-19) BUN 61 H (8-23) mg/dL Creatinine 8.1 H* (0.7-1.2) mg/dL GFR Calculation 6.7 L (90-130) mL/min Glucose 104 (65-115) mg/dL Calculated Osmolal ity 277 L (285-295) mOsm/k g Calcium 9.1 (8.5-10.5) mg/dL Total Bilirubin 0.2 (0.15-1.2) mg/dL AST 6 (0-40) U/L ALT < 5 (0-41) U/L Alkaline Phosphata se 96 (40-130) IU/L Troponin T Baselin e 212 H* (0-15) ng/L NT-Pro-B Natriuret Pep > 07387 H (0-125) pg/mL Total Protein 7.7 (6.6-8.7) g/dL Albumin 3.5 (3.5-5.2) g/dL Globulin 4.2 (1.3-4.6) g/dL Imaging Data^: CXR: Attestation: I personally reviewed and interpreted this imaging study as follows: My impression: no acute abnormality EKG Data^: EKG 1: Attestation: I personally reviewed and interpreted this EKG as follows: EKG interpretation date: 03/07/20 EKG interpretation time: 18:34 Interpretation: nsr hr [address] or t wave abnormalities qrs 110 qtc 404 rbbb Critical Care Time Critical Care Time: Critical Care Time: Yes Total Critical Care Time: 36 Attestation: This case had a high probability of a clinically significant, sudden, or life threatening deterioration of this patient's condition which required my full and direct attention, intervention and personal management. Discharge Plan Discharge Patient Disposition: Admitted As Inpatient Admit Provider: Glenda Montes Clinical Impression: Acute kidney injury superimposed on chronic kidney disease, Essential (primary) hypertension Condition: Stable Referrals: Shruti Wilcox DO [Primary Care Provider] - Coding Level of Care Code ED Behavioral Health Counselor for Chg Fwd Exam Comprehensive
[2020-03-07 18:01] LABS: Basophils # 0.1 10^3/uL (0.0-0.1); Basophils % 1.1 %; Eosinophils # 0.2 10^3/uL (0.0-0.8); Eosinophils % 2.3 %; Hemoglobin 11.2 g/dL (11.7-16.6); Lymphocytes # 0.9 10^3/uL (0.8-4.8); Lymphocytes % 13.4 %; Mean Corpuscular HGB Conc 29.5 g/dL (30.0-36.0); Mean Corpuscular Hemoglobin 27.5 pg (28.0-34.0); Mean Corpuscular Volume 93.4 fL (80-94); Mean Platelet Volume 10.8 fL (7.4-10.4); Monocytes # 0.2 10^3/uL (0.2-0.9); Monocytes % 3.3 %; Neutrophils # 5.6 10^3/uL (1.8-7.7); Neutrophils % 79.5 %; Nucleated Red Blood Cells % 0 %; Platelet Count 380 10^3/cmm (130-400); Red Blood Count 4.07 10^6/uL (4.1-5.3); Red Cell Distribution Width 14.4 % (12.1-15.1)
[2020-03-07] MEDS: sodium chloride 0.9% 500 ML IV (18:33)
[2020-03-07] MEDS: hyDRALAzine 20 mg/mL INJ 1 mL 10 MG IVP ×2 (18:34→19:56)
[2020-03-07 18:51] LABS: Alanine Aminotransferase < 5 U/L (0-41); Albumin Level 3.5 g/dL (3.5-5.2); Alkaline Phosphatase 96 IU/L (40-130); Aspartate Amino Transferase 6 U/L (0-40); Blood Urea Nitrogen 61 mg/dL (8-23); Calcium 9.1 mg/dL (8.5-10.5); Carbon Dioxide 18 mmol/L (22-29); Chloride 92 mmol/L (98-107); Globulin 4.2 g/dL (1.3-4.6); Glomerular Filtration Rate 6.7 mL/min (90-130); Glucose 104 mg/dL (65-115); Osmolality Calculated 277 mOsm/kg (285-295); Sodium 134 mmol/L (136-145); Total Bilirubin 0.2 mg/dL (0.15-1.2); Total Protein 7.7 g/dL (6.6-8.7)
[2020-03-07 19:08] LABS: NT Pro B Type Natriuretic Pept > 35000 pg/mL (0-125)
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
[2020-03-07 19:47] LABS: Troponin(5th) Baseline 212 ng/L (0-15)
--- NOTE | 2020-03-07 19:48 | PC.NURSE ---
lab called with critical troponin 212, notified dr streeter, no orders given at this time
[2020-03-07 20:27] LABS: Troponin 5 2HR Delta 2.8 ABS# (0-10)
[2020-03-07 20:49] LABS: ABG PH Result 7.29 (7.35-7.45); Arterial Blood Gas Hematocrit 34.2 % (42-52); Base Excess ABG -8.3 mmol/L (-2.0-2.0); Blood Gas Allen Test Pos; Blood Gas Sample Site Radial, right; Blood Gas Sample Type Arterial; HCO3 ABG 17.6 mmol/L (22-26); Oxygen Device NC
[2020-03-07 21:03] LABS: Troponin 5 2HR 214.8 ng/L (0-15)
--- NOTE | 2020-03-07 21:04 | PC.NURSE ---
lab called about 2 hour troponin 214.8, delta 2.8
--- NOTE | 2020-03-07 21:13 | ECG_ITS ---
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 Measurements Intervals [place] Rate: 111 P: 85 RI: 132 QRS: 77 QRSD: 109 T: 75 QT: 341 QTc: 464 Interpretive Statements SINUS TACHYCARDIA POSSIBLE LEFT ATRIAL ENLARGEMENT [-0.1mV P WAVE IN V1/V2] INCOMPLETE RIGHT BUNDLE BRANCH BLOCK [90+ ms QRS DURATION, TERMINAL R IN V1/V2, 40+ ms S IN I/aVL/V4/V5/V6] ABNORMAL RHYTHM ECG Compared to ECG 03/07/2020 18:34:31 Sinus rhythm no longer present Electronically Signed On 03-08-2020 21:52:03 CDT by Glenda Flores M.D. [id number]
[2020-03-08] VITALS (38 sets, daily range): BP systolic 118–191; BP diastolic 55–134; PULSE 85–114; RESP 10–27; TEMP 36.5–36.9; O2SAT 90–100
[2020-03-08] MEDS: sevelamer 800 mg Tablet PO ×4 (00:31→20:09)
[2020-03-08] MEDS: heparin 5,000 unit/mL INJ 1 mL 5000 UNIT SUBCUT ×3 (00:31→20:09)
--- NOTE | 2020-03-08 01:13 | ECG_ITS ---
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 Measurements Intervals [place] Rate: 111 P: 89 OR: 168 QRS: 74 QRSD: 94 T: 72 QT: 320 QTc: 436 Interpretive Statements SINUS TACHYCARDIA LEFT ATRIAL ENLARGEMENT [-0.15mV P WAVE IN V1/V2] INCOMPLETE RIGHT BUNDLE BRANCH BLOCK [90+ ms QRS DURATION, TERMINAL R IN V1/V2, 40+ ms S IN I/aVL/V4/V5/V6] MODERATE ST DEPRESSION [0.05+ mV ST DEPRESSION] Compared to ECG 03/07/2020 21:33:58 ST (T wave) deviation now present Electronically Signed On 03-08-2020 21:52:19 CDT by Glenda Flores M.D. [id number]
[2020-03-08 01:44] LABS: Troponin 5 6HR Delta 4.4 ng/L (0-12)
[2020-03-08] MEDS: nicardipine 20 MG/200 ML PREMIX 50 MG IV ×3 (01:48→23:24)
[2020-03-08 02:09] LABS: Troponin 5 6HR 216.4 ng/L (0-15)
[2020-03-08] MEDS: ondansetron 2 mg/ML SDV 2 mL 4 MG IVP (05:17)
[2020-03-08 05:36] LABS: ABG PCO2 37.3 mmHg (35-45); ABG PH Result 7.26 (7.35-7.45); Arterial Blood Gas Hematocrit 31.1 % (42-52); Base Excess ABG -9.6 mmol/L (-2.0-2.0); Blood Gas Sample Site Brachial, left; Blood Gas Sample Type Arterial; HCO3 ABG 16.7 mmol/L (22-26); Oxygen Device NC
[2020-03-08] MEDS: acetaminophen 325 mg Tablet 650 MG PO (05:49)
[2020-03-08 05:50] LABS: Blood Urea Nitrogen 68 mg/dL (8-23); Calcium 8.4 mg/dL (8.5-10.5); Carbon Dioxide 17 mmol/L (22-29); Chloride 92 mmol/L (98-107); Glomerular Filtration Rate 6.2 mL/min (90-130); Glucose 119 mg/dL (65-115); Osmolality Calculated 278 mOsm/kg (285-295); Sodium 134 mmol/L (136-145)
[2020-03-08 07:07] LABS: Basophils # 0.1 10^3/uL (0.0-0.1); Basophils % 0.6 %; Eosinophils % 0.3 %; Hematocrit 32.5 % (42.0-52.0); Hemoglobin 9.5 g/dL (11.7-16.6); Lymphocytes % 11.1 %; Mean Corpuscular HGB Conc 29.2 g/dL (30.0-36.0); Mean Corpuscular Hemoglobin 28.7 pg (28.0-34.0); Mean Corpuscular Volume 98.2 fL (80-94); Mean Platelet Volume 11.1 fL (7.4-10.4); Monocytes # 0.4 10^3/uL (0.2-0.9); Monocytes % 4.1 %; Neutrophils # 7.4 10^3/uL (1.8-7.7); Neutrophils % 82.8 %; Nucleated Red Blood Cells % 0 %; Platelet Count 335 10^3/cmm (130-400); Red Blood Count 3.31 10^6/uL (4.1-5.3); Red Cell Distribution Width 14.7 % (12.1-15.1)
--- NOTE | 2020-03-08 07:36 | US_ITS ---
WS: [id number] RENAL ULTRASOUND HISTORY: Acute tubular necrosis. COMPARISON: None available. TECHNIQUE: 2-D and color Doppler imaging of the kidney submitted. Right kidney: 10.2 cm x 4.0 cm x 3.7 cm. Normal size kidney with increased echogenicity throughout the kidney. No hydronephrosis or mass. Left kidney: Size of the kidney is difficult to determine. Visualization of the LEFT kidney is very difficult. The kidney appears enlarged and edematous with po or cortical medullary differentiation. Aorta: Moderate atherosclerosis aorta. Mild aneurysmal dilatation at 3.4 cm. Urinary Bladder: Well-distended urinary bladder. There is a soft tissue nodule extending into the lum en of the bladder from the LEFT without increased vascularity. Nodule is elongated with a maximum jalen meter of 2.1 cm. Prostate gland is enlarged. US/US renal BI* [id number] IMPRESSION: 1. Moderate chronic RIGHT medical renal disease. 2. LEFT kidney is very difficult to visualize and may be enlarged and edematou s. 3. 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 4. Diffuse bladder wall thickening with a nodule extending into the lumen from the LEFT measuring 2.1 cm. Differential for this nodule includes chronic septa tion or scar. Neoplasm not completely excluded.
--- NOTE | 2020-03-08 08:19 | PM.PN ---
Subjective Subjective: Interval history: History and physical reviewed. Patient reports he was short of breath significantly when he came in. He had had no significant cough, fever, or COVID exposure. His blood pressure was markedly elevated on admission. He had obvious renal failure. Patient reports he takes aspirin at home around 3 at night may be typical. He also recently was started on lisinopril about a week ago. He reports he has been referred to nephrology and was to have a renal ultrasound soon for renal insufficiency that had developed. Creatinine in June 2019 was 1.2 but on February 15 of this year was 3.3. September 21 of this year was 2.4. Patient reports he feels much better currently. He denies any significant shortness of breath over his baseline. He has no cough. He reports at home he also had nausea Medications: Reviewed: Yes Vitals/I&O/Wt Last Vital Signs Temp 98.2 F 03/08/20 06:00 Pulse 102 H 03/08/20 07:54 Resp 16 03/08/20 07:54 BP 118/67 03/08/20 05:00 Pulse Ox 97 03/08/20 07:54 03/07/20 03/08/20 03/08/20 22:59 06:59 14:59 Intake Total 500 / 500 166.667 / 666.667 Balance 500 / 500 166.667 / 666.667 Weight last 48 hrs Weight 57.198 kg Physical Exam Narrative: EXAM NARRATIVE: General exam is a white male who appears comfortable in bed, on 2 L of oxygen which is his baseline Cardiovascular mild tachycardia Lungs diminished breath sounds bilaterally but no wheezing or crackles Abdomen is soft, positive bowel sounds Extremities no cyanosis clubbing or edema Data : 03/08/20 06:40 03/08/20 04:57 A&P Assessment and plan (1) Acute kidney injury superimposed on chronic kidney disease: Etiology unknown. Was taking aspirin daily, recently put on lisinopril. Await renal ultrasound Place [place] Check CK Initiate fluids normal saline 50 cc an hour monitoring for fluid overload closely Nephrology consultation Status: Acute (2) Hypertensive emergency: Nicardipine was started secondary to markedly elevated blood pressure. It is currently 118/67. I instructed the nurse to taper this down. I would like to make his blood pressure approximately 1 40-1 60 systolic if he has no symptoms from this. Discontinue his Norvasc for now Add hydralazine as needed Start metoprolol 12.5 mg twice daily to try to prevent beta-emilia withdrawal Status: Acute Additional A&P Information Pulmonary fibrosis. Currently pulmonary status seems at baseline Malnourished. N.p.o. for now but will start diet as soon as possible History of GERD. Start Pepcid Full code Heparin for DVT prophylaxis Attestations Medical Necessity Statement*: Needs continued hospitalization secondary to severe acute renal failure Critical Care Time: 31 minutes spent at bedtime reviewing history, patient examination, reviewing all information to determine best course forward in this patient with severe acute renal failure that is life-threatening. Coding Level of Care Code Acute Supervisor Functional Testing for Hermes De La Cruz Diagnoses Acute kidney injury superimposed on chronic kidney disease N17.9; N18.9 Hypertensive emergency I16.1
--- NOTE | 2020-03-08 08:42 | P.CONIM_ITS ---
Providers/Reason For Consult Consulting Physican/Specialty*: Gabi Nash DO, telenephrology Reason for Consult*: Acute Kidney Injury, chronic kidney disease Requesting Physcian: David Feliciano MD Attending Physician: David Feliciano MD Primary Care Provider: Shruti Wilcox DO History of Present Illness History of Present Illness Saul Lynn is a 64 year old male who presented for evaluation of abnormal labs. Found to have severe hypertension. Reports weakness, dry heaves. Denies issues with urination. + chronic dyspnea. Confirms that he started lisinopril after lab draw at beginning of month. Meds/Allergies Home Medications and Allergies Home Medications Medication Instructions Recorded Confirmed Last Taken Type arformoterol 15 mcg/2 mL solution 15 mcg INHALATION BID ml 09/13/19 03/07/20 03/06/20 History for nebulization budesonide 0.5 mg/2 mL suspension 0.5 mg INHALATION BID 09/13/19 03/07/20 03/06/20 History for nebulization albuterol sulfate 90 mcg/actuation 2 puff INHALATION Q6H PRN #8.5 gm 03/06/20 03/07/20 Unknown Rx aerosol inhaler gabapentin 800 mg tablet 800 mg PO TID #270 tab 03/06/20 03/07/20 03/06/20 Rx lisinopril 10 mg PO DAILY 03/06/20 03/07/20 Unknown History omeprazole 40 mg capsule,delayed 40 mg PO DAILY #30 cap 03/06/20 03/07/20 Unknown Rx release propranolol See Rx Instructions .ROUTE .COMPLEX 03/06/20 03/07/20 Unknown History umeclidinium 62.5 mcg/actuation 1 inh INHALATION Q24H #30 each 03/06/20 03/07/20 03/06/20 Rx blister powder for inhalation Tussin Multi Sym Cold Cf 10 ml PO PRN 03/07/20 03/07/20 Unknown History albuterol sulfate 2.5 mg INHALATION Q4H PRN 03/07/20 03/07/20 Unknown History amlodipine [Norvasc] 10 mg PO DAILY 03/07/20 03/07/20 03/06/20 History atorvastatin 40 mg PO DAILY 03/07/20 03/07/20 Unknown History metoprolol tartrate 75 mg PO BID 03/07/20 03/07/20 03/06/20 History mupirocin 1 applic TOPICAL BID PRN 03/07/20 03/07/20 Unknown History phenylephrine-guaifenesin [Chest 2 tab PO TID PRN 03/07/20 03/07/20 03/07/20 History Congestion Relief PE] silver [SilvaSorb] 1 applic TOPICAL PRN 03/07/20 03/07/20 Unknown History Allergies Allergy/AdvReac Type Severity Reaction Status Date / Time meperidine [From Demerol] Allergy Unknown Verified 03/07/20 18:24 montelukast [From Singulair] Allergy Unknown Verified 03/07/20 18:24 Current Medications Current Medications Generic Name Dose Route Start Last Admin Trade Name Freq PRN Reason Stop Dose Admin Nicardipine/Sodium Chloride 20 mg in 200 mls @ 0 mls/hr 03/07/20 23:55 03/08/20 05:08 Cardene IV 5 mg/hr .Q0M DIGNA 50 mls/hr Administration Protocol Per Protocol Sevelamer Carbonate 800 mg 03/07/20 23:55 03/08/20 00:31 Renvela PO 800 mg TID DIGNA Administration PFSH Acute PFSH: Medical History CKD (chronic kidney disease), stage III COPD (chronic obstructive pulmonary disease) Encephalitis due to human herpes simplex virus (HSV) Essential (primary) hypertension GERD (gastroesophageal reflux disease) Mixed hyperlipidemia Neuropathy Pulmonary fibrosis Severe chronic obstructive pulmonary disease Surgical History H/O hernia repair Family History Other Diabetes Social History Smoking and tobacco status: former smoker Alcohol intake: never Vitals/I&O/Wt Last Vital Signs Temp 98.2 F 03/08/20 06:00 Pulse 102 H 03/08/20 07:54 Resp 16 03/08/20 07:54 BP 118/67 03/08/20 05:00 Pulse Ox 97 03/08/20 07:54 03/07/20 03/08/20 03/08/20 22:59 06:59 14:59 Intake Total 500 / 500 166.667 / 666.667 Balance 500 / 500 166.667 / 666.667 Weight last 48 hrs Weight 57.198 kg Physical Exam Const: COMMON NORMALS: no acute distress and alert GENERAL APPEARANCE: cooperative and appears older than stated age NUTRITIONAL APPEARANCE: cachectic Extremity: COMMON NORMALS: no pedal edema Neuro: SENSORIUM/ORIENTATION: Yes alert Data Labs: Other Labs: 24 hour urine prior 2623 mg albumin 7.26/37/82 3L NC albumin 3.5, calcium 8.4, phos 9, PTH 463 pg/ml, 25(OH)D 7 BNP 35,000, CK 80 Other Data: Other data: Renal Ultrasound: 1. Moderate chronic RIGHT medical renal disease. 2. LEFT kidney is very difficult to visualize and may be enlarged and edematous. 3. 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 4. Diffuse bladder wall thickening with a nodule extending into the lumen from the LEFT measuring 2.1 cm. Differential for this nodule includes chronic septation or scar. Neoplasm not completely excluded. CXR: Severe emphysema with advanced biapical pleural thickening and scarring which is stable. A&P Additional A&P Information Impression: 1. Acute kidney injury, serum creatinine 3.3 mg/dL earlier this month. ACEi in itiated since 2. Chronic kidney disease with near nephrotic range proteinuria on last assessment 3. Abnormal left kidney and bladder on ultrasound 4. Hypertension much improved on cardene gtt 5. Metabolic acidosis 6. Secondary hyperparathyroidism, vitamin D deficiency, hyperphosphatemia 7. Anemia Recommend: Continue gentle IVF hydration. Add oral sodium bicarbonate 650 mg TID. Agree with holding ACEi. Need additional imaging - CT abdomen and pelvis no IV contrast. Urinalysis. RN reports difficulty placing denton - recommend consult urology. 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
[2020-03-08 08:50] LABS: Creatine Phosphokinase 80 U/L (39-308); Thyroid Stimulating Hormone 2.06 uIU/mL (0.27-4.20)
[2020-03-08] MEDS: metoprolol tartrate 25 mg Tablet 12.5 MG PO ×2 (10:06→18:13)
[2020-03-08] MEDS: famotidine 20 mg/2 mL INJ IVP ×2 (10:07→20:10)
[2020-03-08] MEDS: sodium chloride 0.9% 1,000 ML 50 ML IV (10:11)
--- NOTE | 2020-03-08 10:58 | PC.NURSE ---
1045 attempted to insert denton catheter w/o success. seems prostate in enlarged. had just urinated. 100cc, green to dark kimberly urine. will try again later.
[2020-03-08 12:08] LABS: Bilirubin Urine Neg (NEGATIVE); Blood Urine 3+ (Negative); Glucose Urine UA Norm (Normal); Ketones Urine 1+ (Negative); Leukocyte Esterase Urine Negative (Negative); Nitrate Urine Negative (Negative); Protein Urine 3+ (Negative); Urine Appearance SL Hazy (CLEAR); Urine Color Brown (Yellow); Urobilinogen Urine Norm (Negative)
--- NOTE | 2020-03-08 12:16 | CTR_ITS ---
PROCEDURE INFORMATION: Exam: CT Abdomen And Pelvis Without Contrast Exam date and time: 03/08/2020 12:28 PM Age: 64 years old Clinical indication: Abdominal pain; Additional info: Abnormal kidney and bladder imaging, abdominal pain, abnormal labs TECHNIQUE: Imaging protocol: Computed tomography of the abdomen and pelvis without contrast. Radiation optimization: All CT scans at this facility use at least one of these dose optimization techniques: automated exposure control; mA and/or kV adjustment per patient size (includes targeted exams where dose is matched to clinical indication); or iterative reconstruction. COMPARISON: US renal BI* [id number] 03/08/2020 7:54 AM RADIATION DOSE METRICS: Total DLP (mGy-cm): 506.04 FINDINGS: Detailed evaluation of the abdominal and pelvic viscera is somewhat limited in the absence of intravenous contrast. Lungs: Emphysematous change, interstitial prominence, and mild left basilar airspace/pleural disease. Liver: No focal hepatic mass. Gallbladder and bile ducts: Gallbladder dilatation, without biliary ductal dilatation. Pancreas: No pancreatic mass or ductal dilatation. Spleen: No splenomegaly. Adrenals: Unremarkable adrenals. Kidneys and ureters: 10 mm cyst in the lower pole of the right kidney. No hydronephrosis. Stomach and bowel: Mild bowel dilatation, disproportionately involving the colon, along with prominent stool Diverticula, without pericolonic inflammation. Appendix: Appendix not visualized. Intraperitoneal space: No free fluid. Vasculature: Aneurysm in the visualized descending thoracic aorta, measuring 4.5 cm in maximum transverse dimension. Fusiform abdominal aortic aneurysm, measuring 4.2 cm in maximum transverse dimension at the L3 level, with focal right posterior lateral aspect out ting, extending beyond the calcified periphery. Arteriography is recommended for improved characterization. Prominent vascular calcification. Lymph nodes: Subcentimeter lymph nodes. Bladder: Wall thickening in the nondistended bladder. Ultrasound detected nodule is poorly visualized. Reproductive: Unremarkable as visualized. Bones/joints: Osteopenia. Degenerative change and disc bulging. L5 spondylolysis and grade 1 anterior listhesis of L5 on S1. Soft tissues: Subcutaneous air in the left anterior abdominal wall. CT/CT abdomen pelvis wo con [id number] IMPRESSION: 1. Aneurysm in the visualized descending thoracic aorta, measuring 4.5 cm in maximum transverse dimension. 2. Fusiform abdominal aortic aneurysm, measuring 4.2 cm in maximum transverse dimension at the L3 level, with focal right posterior lateral aspect out ting, extending beyond the calcified periphery. Arteriography is recommended for improved characterization. 3. Additional findings as described above. Addendum: These findings were conveyed to Dr. Feliciano at the time of interpretation (03/08/2020 2:42 PM CDT). Radiation Dose CTDIVOL = (mGy): DLP = 506.04 (mGy-cm)
[2020-03-08 12:20] LABS: RBC Urine >100 /hpf (0-2); WBC Urine 0-4 /hpf (0-5)
[2020-03-08 12:21] LABS: Add Urine Culture? Yes; Bacteria Urine 2+; Squamous Epithelial Cell Urine RARE (0-5)
--- NOTE | 2020-03-08 13:58 | PC.RESP ---
Pulmonary Rehab information sent to patient.
--- NOTE | 2020-03-08 15:14 | P.CONIM_ITS ---
Providers/Reason For Consult Consulting Physican/Specialty*: Urology/Pal Reason for Consult*: Inability to pass catheter in patient with critical need for fluid management Attending Physician: David Feliciano MD Primary Care Provider: Shruti Wilcox DO History of Present Illness History of Present Illness Saul Lynn is a 64 year old male who I evaluated for the first time today at the request of Dr. Feliciano. Patient is in significant need for Almonte catheter for fluid volume management with an elevated creatinine of 8.7 and other critical illnesses. Attempts by the nursing staff were unsuccessful. Patient states that he had a catheter before that was placed while he was asleep and as far as he knew there was no difficulty. He said no difficulty with other catheters placed previously. PROCEDURE: FLEXIBLE CYSTOSCOPY and CATHETER PLACEMENT Prepped and draped in the usual sterile fashion. 2% lidocaine jelly was instilled into the urethra. A flexible cystoscope was passed into the urethra under direct vision and the urethra was carefully inspected. There was a small false passage anteriorly just distal to the membranous urethra. The scope was passed beyond this through the membranous urethra through the prostate into the bladder. The bladder was not fully inspected due to cloudy urine. A 16 Ukrainian coud? tip Almonte catheter was passed with the tip angled laterally at the membranous urethra then anteriorly as it was passed through the prostate. Amount of urine was returned. Urine was cloudy and dark. Catheter placed to dependent drainage and procedure completed. The patient has other significant comorbidities only. Would be good after he recovers from these illnesses to reinspect his bladder under more appropriate circumstances on outpatient basis. I will be available if any additional urologic assistance is needed. ADDENDUM: I was called back to the ICU because there was a question as to whether or not the catheter was functioning well. Was not irrigating normally per nursing staff. It appeared that the catheter was in appropriate place. It was switched out for a 18 Ukrainian coud? catheter placed sterilely and is function was confirmed via irrigation with 60 cc cath tip syringe. He did have a little bit of leakage around the catheter and had some urgency but it was clear the bulk of the fluid that was put into the bladder through the catheter was returned. Was clear. CT scan showed very little fluid in the bladder which would go along with his severe renal failure. Reviewed with the nursing staff. Irrigate as needed. I expect his urine output will be very diminished. Review of Systems Const: Reports: fatigue and malaise Eyes: Denies: change in vision Card: Reports: dyspnea on exertion; Denies: chest pain Resp: Reports: dyspnea; Denies: productive cough GI: Denies: nausea or vomiting : Denies: urinary urgency, difficulty starting urination or change in urine stream Musc: Denies: joint redness Psych: Denies: anxiety or depression Abraham/Lymph: Denies: easy bleeding or tender lymph nodes Meds/Allergies Home Medications and Allergies Home Medications Medication Instructions Recorded Confirmed Last Taken Type arformoterol 15 mcg/2 mL solution 15 mcg INHALATION BID ml 09/13/19 03/07/20 03/06/20 History for nebulization budesonide 0.5 mg/2 mL suspension 0.5 mg INHALATION BID 09/13/19 03/07/20 03/06/20 History for nebulization albuterol sulfate 90 mcg/actuation 2 puff INHALATION Q6H PRN #8.5 gm 03/06/20 03/07/20 Unknown Rx aerosol inhaler gabapentin 800 mg tablet 800 mg PO TID #270 tab 03/06/20 03/07/20 03/06/20 Rx lisinopril 10 mg PO DAILY 03/06/20 03/07/20 Unknown History omeprazole 40 mg capsule,delayed 40 mg PO DAILY #30 cap 03/06/20 03/07/20 Unknown Rx release propranolol See Rx Instructions .ROUTE .COMPLEX 03/06/20 03/07/20 Unknown History umeclidinium 62.5 mcg/actuation 1 inh INHALATION Q24H #30 each 03/06/20 03/07/20 03/06/20 Rx blister powder for inhalation Tussin Multi Sym Cold Cf 10 ml PO PRN 03/07/20 03/07/20 Unknown History albuterol sulfate 2.5 mg INHALATION Q4H PRN 03/07/20 03/07/20 Unknown History amlodipine [Norvasc] 10 mg PO DAILY 03/07/20 03/07/20 03/06/20 History atorvastatin 40 mg PO DAILY 03/07/20 03/07/20 Unknown History metoprolol tartrate 75 mg PO BID 03/07/20 03/07/20 03/06/20 History mupirocin 1 applic TOPICAL BID PRN 03/07/20 03/07/20 Unknown History phenylephrine-guaifenesin [Chest 2 tab PO TID PRN 03/07/20 03/07/20 03/07/20 History Congestion Relief PE] silver [SilvaSorb] 1 applic TOPICAL PRN 03/07/20 03/07/20 Unknown History Allergies Allergy/AdvReac Type Severity Reaction Status Date / Time meperidine [From Demerol] Allergy Unknown Verified 03/07/20 18:24 montelukast [From Singulair] Allergy Unknown Verified 03/07/20 18:24 Current Medications Current Medications Generic Name Dose Route Start Last Admin Trade Name Freq PRN Reason Stop Dose Admin Famotidine 20 mg 03/08/20 08:30 03/08/20 10:07 Pepcid Inj IVP 20 mg Q12H DIGNA Administration Heparin Sodium (Beef Lung) 5,000 unit 03/08/20 08:30 03/08/20 10:06 Heparin SUBCUT 5,000 unit Q12H DIGNA Administration Nicardipine/Sodium Chloride 20 mg in 200 mls @ 0 mls/hr 03/07/20 23:55 03/08/20 14:05 Cardene IV Infused .Q0M DIGNA Titration Protocol Per Protocol Sodium Chloride 1,000 mls @ 50 mls/hr 03/08/20 08:15 03/08/20 10:11 Sodium Chloride 0.9% IV 50 mls/hr .Q20H DIGNA Administration Metoprolol Tartrate 12.5 mg 03/08/20 09:00 03/08/20 10:06 Lopressor PO 12.5 mg BID DIGNA Administration Sevelamer Carbonate 800 mg 03/07/20 23:55 03/08/20 10:07 Renvela PO 800 mg TID DIGNA Administration PFSH Acute PFSH: Medical History CKD (chronic kidney disease), stage III COPD (chronic obstructive pulmonary disease) Encephalitis due to human herpes simplex virus (HSV) Essential (primary) hypertension GERD (gastroesophageal reflux disease) Mixed hyperlipidemia Neuropathy Pulmonary fibrosis Severe chronic obstructive pulmonary disease Surgical History H/O hernia repair Family History Other Diabetes Social History Smoking and tobacco status: former smoker Alcohol intake: never Vitals/I&O/Wt Last Vital Signs Temp 98.2 F 03/08/20 06:00 Pulse 102 H 03/08/20 07:54 Resp 16 03/08/20 07:54 BP 118/67 03/08/20 05:00 Pulse Ox 97 03/08/20 07:54 03/08/20 03/08/20 03/08/20 06:59 14:59 22:59 Intake Total 166.667 / 666.667 200 / 200 Balance 166.667 / 666.667 200 / 200 Weight last 48 hrs Weight 126 lb 1.6 oz Physical Exam Const: COMMON NORMALS: no acute distress and alert Resp: EFFORT & INSPECTION: No tachypneic and No respiratory distress OTHER: No audible wheezing : PENIS: normal penis MEATUS: meatus normal SCROTUM: No Scrotal tenderness present Neuro: SENSORIUM/ORIENTATION: Yes alert Psych: COMMON NORMALS: mental status grossly normal, Normal thought process present and cooperative ATTITUDE: Yes calm and Yes engaged THOUGHT PROCESS: Normal thought process present A&P Assessment and plan (1) Difficulty with insertion of urinary catheter: Status: Acute (2) Acute kidney injury superimposed on chronic kidney disease: Status: Acute Consult Attestations Medical Necessity Statement: See attending Other Attestations: Other Attestations: Discussed with his hospitalist Dr. Feliciano. 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
[2020-03-08 15:16] LABS: Urine Creatinine 116 mg/dL (39-259); Urine Random Chloride 23 mmol/L; Urine Random Sodium 22 mmol/L
--- NOTE | 2020-03-08 15:46 | PC.NURSE ---
dr. estrella in [place] placed
[2020-03-08] MEDS: lidocaine 2% Urojet 20 mL TOPICAL (15:49)
[2020-03-08] MEDS: sodium bicarbonate 650 mg Tablet PO ×2 (15:51→20:09)
[2020-03-08] MEDS: cefTRIAXone 1,000 MG in sodium chloride 0.9% (plus) 50 ML 100 MG IV ×2 (15:51→17:49)
[2020-03-08 15:56] LABS: Anion Gap 30.8 (5-19); Blood Urea Nitrogen 72 mg/dL (8-23); Calcium 9.1 mg/dL (8.5-10.5); Carbon Dioxide 17 mmol/L (22-29); Chloride 93 mmol/L (98-107); Glomerular Filtration Rate 5.9 mL/min (90-130); Glucose 101 mg/dL (65-115); Osmolality Calculated 280 mOsm/kg (285-295); Potassium 5.8 mmol/L (3.5-5.1); Sodium 135 mmol/L (136-145)
[2020-03-08] MEDS: sodium polystyrene sulfonate 15 gm/60 mL Btl PO (16:35)
[2020-03-08] MEDS: insulin regular-human 10 UNIT in SYRINGE 1 EACH IVP (16:37)
[2020-03-08] MEDS: ipratropium-albuterol 3 mL Neb INHALATION ×2 (16:44→19:57)
[2020-03-08] MEDS: dextrose 50% syringe 50 mL IVP (17:29)
[2020-03-08] MEDS: FUROsemide 10 mg/mL SDV 10mL 80 MG IVP (17:53)
[2020-03-08] MEDS: hyDRALAzine 20 mg/mL INJ 1 mL 10 MG IVP (20:10)
--- NOTE | 2020-03-08 20:26 | PC.NURSE ---
Patient resting quietly in bed, A&O and in good spirits. Hypertensive 179/114, prn hydralazine given. Patient has cardene drip available if hypertension sustained. All questions/concerns addressed at this time.
[2020-03-08 21:56] LABS: Anion Gap 31.1 (5-19); Blood Urea Nitrogen 73 mg/dL (8-23); Carbon Dioxide 17 mmol/L (22-29); Chloride 91 mmol/L (98-107); Glomerular Filtration Rate 6.1 mL/min (90-130); Glucose 96 mg/dL (65-115); Osmolality Calculated 279 mOsm/kg (285-295); Potassium 4.1 mmol/L (3.5-5.1); Sodium 135 mmol/L (136-145)
--- NOTE | 2020-03-08 22:00 | PC.NURSE ---
Dr. Myrick with Nephrology phoned. Updated on patient including continued hypertension, labs reviewed. Will place order to check PTT PT/INR. Do not call with critical results, creatinine expected to be critical. Patient may require dialysis.
--- NOTE | 2020-03-08 23:30 | PC.NURSE ---
Dr. Montes notified of sustained hypertension, ok'd to restart Ronal delcid
--- NOTE | 2020-03-08 23:55 | USCV_ITS ---
BerylSaul king Age: 64 Gender: M : 1955 Exam Date: 03/08/2020 06:02 Ordering Phys: Glenda Montes MD Technologist: Elisabeth Brar Exam Location: [facility] [place] Indication: CHF BP: 114 / 63 HR: 105 Rhythm: Sinus Technical Quality: Very poor MEASUREMENTS (Male / Female) Normal Values 2D ECHO LV Diastolic Diameter PLAX 3.3 cm 4.2 - 5.9 / 3.9 - 5.3 cm LV Systolic Diameter PLAX 1.8 cm LV Chamber Size 3.6 cm IVS Diastolic Thickness 1.5 cm 0.6 - 1.0 / 0.6 - 0.9 cm IVS Systolic Thickness 1.5 cm LVPW Diastolic Thickness 1.1 cm 0.6 - 1.0 / 0.6 - 0.9 cm LVPW Systolic Thickness 1.5 cm RV Chamber Size 3.9 cm LVOT Diameter 2.0 cm LV Ejection Fraction 2D Teich 78.6 % LA Diameter 3.3 cm LA Width 2.4 cm LA Height 4.0 cm RA Width 3.4 cm RA Height 2.2 cm Aorta at Sinotubular Diameter 2.1 cm M-MODE LV Diastolic Diameter MM 3.1 cm 4.2 - 5.9 / 3.9 - 5.3 cm LV Systolic Diameter MM 2.1 cm LV Ejection Fraction MM Teich 60.0 % IVS Diastolic Thickness MM 0.8 cm 0.6 - 1.0 / 0.6 - 0.9 cm IVS Systolic Thickness MM 1.0 cm LVPW Diastolic Thickness MM 1.1 cm 0.6 - 1.0 / 0.6 - 0.9 cm LVPW Systolic Thickness MM 1.3 cm RV Diastolic Diameter MM 0.7 cm Aortic Annulus Diameter 3.0 cm LA Ao Ratio MM 1.1 MV E Point Septal Separation 0.2 cm DOPPLER AV Peak Velocity 177.0 cm/s LVOT Peak Velocity 84.0 cm/s AV Area Cont Eq vti 2.4 cm squared AV Area Cont Eq pk 1.5 cm squared MV Area PHT 6.5 cm squared Mitral E to A Ratio 0.9 MV E' Velocity 12.0 cm/s Mitral E to MV E' Ratio 4.2 Mitral E to LV E' Lateral Ratio 4.1 Mitral E to LV E' Septal Ratio 4.2 TR Peak Velocity 237.5 cm/s TR Peak Gradient 22.6 mmHg TR Mean Velocity 190.8 cm/s TR Mean Gradient 15.6 mmHg TR Velocity Time Integral 64.4 cm TV Peak E Velocity 70.0 cm/s Right Atrial Pressure 15.0 mmHg Pulmonary Artery Systolic Pressu 37.6 mmHg PV Peak Velocity 113.0 cm/s RV Acceleration Time 0.2 s RV Ejection Time 0.3 s RV AcT/ET 0.5 FINDINGS Left Ventricle Diminished visualization secondary to sinus tachycardia and a congenital chest wall abnormality. Only limited subcostal view is available. There is mild left ventricular hypertrophy noted. No obvious wall motion disturbances. Diastolic function could not be determined. Overall ejection fraction is probably normal. Right Ventricle Right ventricular wall poorly visualized. There is mild right ventricular hypertrophy. Probably normal right ventricular free wall motion. Right Atrium Not visualized Left Atrium Not visualized Mitral Valve Poorly visualized. No obvious stenosis or regurgitation. Aortic Valve Poorly visualized. No obvious stenosis or regurgitation. Tricuspid Valve Poorly visualized. No obvious stenosis or regurgitation. Pulmonic Valve Poorly visualized Pericardium Tiny hemodynamically insignificant pericardial effusion. Aorta Poorly visualized CONCLUSIONS Diminished visualization secondary to sinus tachycardia and a congenital chest wall abnormality. Only limited subcostal view is available. There is mild left ventricular hypertrophy noted. No obvious wall motion disturbances. Diastolic function could not be determined. Overall ejection fraction is probably normal. Right ventricular wall poorly visualized. There is mild right ventricular hypertrophy. Probably normal right ventricular free wall motion. Tiny hemodynamically insignificant pericardial effusion. The study is similar to 1 previously performed on June [address] Blayne Vivas MD (Electronically Signed) Final Date: 08 March 2020 14:28 S
[2020-03-09] VITALS (53 sets, daily range): BP systolic 121–196; BP diastolic 61–114; PULSE 79–113; RESP 9–25; TEMP 36.2–36.7; O2SAT 88–100
--- NOTE | 2020-03-09 | SCC_ITS ---
Procedure Done: Placement of 23 cm long tunneled 16 [place]an Johnathan split hemodialysis catheter in the right internal jugular vein Placement of 7 [place]an triple-lumen catheter in the left subclavian vein 104.6 seconds of fluoroscopic guidance, for a cumulative dose of 13.73 mGy, was provided to Dr. Ramos by the radiology department. C-arm images of the chest were saved for the patient's permanent record. [facility]
[2020-03-09] MEDS: sodium chloride 0.9% 1,000 ML 50 ML IV (04:59)
[2020-03-09 05:38] LABS: Basophils # 0.1 10^3/uL (0.0-0.1); Basophils % 0.5 %; Eosinophils % 0.3 %; Hematocrit 28.1 % (42.0-52.0); Hemoglobin 8.3 g/dL (11.7-16.6); Lymphocytes % 10.7 %; Mean Corpuscular HGB Conc 29.5 g/dL (30.0-36.0); Mean Corpuscular Hemoglobin 27.7 pg (28.0-34.0); Mean Corpuscular Volume 93.7 fL (80-94); Mean Platelet Volume 10.9 fL (7.4-10.4); Monocytes # 0.5 10^3/uL (0.2-0.9); Monocytes % 5.7 %; Neutrophils # 7.4 10^3/uL (1.8-7.7); Neutrophils % 80.9 %; Nucleated Red Blood Cells % 0 %; Platelet Count 320 10^3/cmm (130-400); Red Cell Distribution Width 14.9 % (12.1-15.1); White Blood Count 9.1 10^3/uL (4.0-10.0)
[2020-03-09 06:07] LABS: Alanine Aminotransferase < 5 U/L (0-41); Albumin Level 2.9 g/dL (3.5-5.2); Alkaline Phosphatase 77 IU/L (40-130); Anion Gap 28.1 (5-19); Aspartate Amino Transferase 5 U/L (0-40); Blood Urea Nitrogen 67 mg/dL (8-23); Calcium 8.6 mg/dL (8.5-10.5); Carbon Dioxide 20 mmol/L (22-29); Chloride 88 mmol/L (98-107); Globulin 3.9 g/dL (1.3-4.6); Glomerular Filtration Rate 5.8 mL/min (90-130); Glucose 142 mg/dL (65-115); Osmolality Calculated 276 mOsm/kg (285-295); Potassium 4.1 mmol/L (3.5-5.1); Sodium 132 mmol/L (136-145); Total Bilirubin 0.2 mg/dL (0.15-1.2); Total Protein 6.8 g/dL (6.6-8.7)
[2020-03-09] MEDS: hyDRALAzine 20 mg/mL INJ 1 mL 10 MG IVP ×4 (06:08→22:20)
[2020-03-09 06:13] LABS: INR 1.16 (0.8-1.2)
[2020-03-09 06:14] LABS: Partial Thromboplastin Time 45.4 SECONDS (23.9-36.7)
[2020-03-09 06:24] LABS: Phosphorus 9.7 mg/dL (2.5-4.5)
[2020-03-09] MEDS: heparin 5,000 unit/mL INJ 1 mL 5000 UNIT SUBCUT ×2 (07:39→20:12)
[2020-03-09] MEDS: famotidine 20 mg/2 mL INJ IVP (07:40)
[2020-03-09] MEDS: albuterol 8 gm MDI 2 PUFF INHALATION ×2 (08:27→13:36)
[2020-03-09 09:00] LABS: Folate Level 6.9 ng/mL (4.5-32.2)
[2020-03-09] MEDS: sevelamer 800 mg Tablet PO ×2 (09:04→16:39)
[2020-03-09] MEDS: metoprolol tartrate 25 mg Tablet PO ×2 (09:08→17:56)
[2020-03-09 09:27] LABS: Ferritin 397 ng/mL (30-400); Iron 49 ug/dL (59-158); Percent Saturation 32.2 % (20-50); Total Iron Binding Capacity 152 mcg/dl; Unsaturated Iron Binding 103 ug/dL (112-347); Vitamin B12 609 pg/mL (232-1245)
--- NOTE | 2020-03-09 09:29 | P.ANESASSM_ITS ---
Pre-Anesthetic Assessment Pre-Anesthetic Assessment: Height/Weight: Height 1.93 m Weight 57.198 kg Temp Pulse Resp BP Pulse Ox 97.9 F 104 H 20 H 169/93 94 03/09/20 08:00 03/09/20 08:31 03/09/20 08:29 03/09/20 08:00 03/09/20 08:29 Preop Diagnosis: Acute Kidney Insufficiency Proposed Procedure: Operation Date: 03/09/20 11:00 Proposed Procedures p Dialysis Catheter Insertion(Not Applicable) - Jaylan Ramos MD Familial anesthetic complications: None Was Beta Tan taken within 24 ho urs: Yes Last intake: NPO > 8 hrs, except sips of water with meds Social: Comment: Former smoker Airway: Cervical ROM: WNL MP: 2 Additional comments: edentulous, chan Pulmonary: Pulmonary: COPD Comments: SEvere copd on 3 L NC Pulmonary fibrosis w/ frequent collapse Acute rep distress CV/HEM: CV/HEM: HTN (Hypertensive emergency overnight requiring nicardipine drip) Comments: RBB Most recent echo poor image quality, but no gross abnormalities : : Chronic renal Insufficiency Comments: DUDLEY on CKD GI: GI: GERD Metabolic: Metabolic: Hyperlipidemia Comments: B12 deficiency pH 7.26 w/ megtabolic acidosis Neuropsych: Comments: HSV encephalitis Anesthetic Plan: ASA status: 5E Anesthesia: MAC Risk of > 500 ml blood loss (7ml/kg in children): No Meds/Allergies Current Medications: Current Medications Generic Name Dose Route Start Last Admin Trade Name Freq PRN Reason Stop Dose Admin Albuterol Sulfate 2 puff 03/09/20 07:49 03/09/20 08:27 Ventolin INHALATION 2 puff Q4H.RESPIRATORY P RN Administration SHORTNESS OF JASEN TH Famotidine 20 mg 03/08/20 08:30 03/09/20 07:40 Pepcid Inj IVP 20 mg Q12H DIGNA Administration Heparin Sodium (Be ef Lung) 5,000 unit 03/08/20 08:30 03/09/20 07:39 Heparin SUBCUT 5,000 unit Q12H DIGNA Administration Hydralazine HCl 10 mg 03/08/20 08:15 03/09/20 06:08 Apresoline IVP 10 mg Q4H PRN Administration HYPERTENSION Ceftriaxone Sodium 1,000 mg/ 50 mls @ 100 mls/ hr 03/08/20 15:00 03/08/20 17:49 Sodium Chloride IV 100 mls/hr Q24H DIGNA Administration Protocol Sodium Bicarbonate 100 meq/ 1,100 mls @ 50 ml s/hr 03/08/20 17:45 03/08/20 17:47 Dextrose IV 50 mls/hr .Q22H DIGNA Administration Metoprolol Tartrat e 25 mg 03/09/20 09:00 03/09/20 09:08 Lopressor PO 25 mg BID DIGNA Administration Sevelamer Carbonat e 800 mg 03/07/20 23:55 03/09/20 09:04 Renvela PO 800 mg TID DIGNA Administration PFSH Anesthesia PFSH: Medical History CKD (chronic kidney disease), stage III COPD (chronic obstructive pulmonary disease) Encephalitis due to human herpes simplex virus (HSV) Essential (primary) hypertension GERD (gastroesophageal reflux disease) Mixed hyperlipidemia Neuropathy Pulmonary fibrosis Severe chronic obstructive pulmonary disease Surgical History H/O hernia repair Family History Other Diabetes Social History Smoking and tobacco status: former smoker Alcohol intake: never Data Anesthesia CBC & Chem 7: 03/09/20 04:30 03/09/20 04:30 Other Labs: Laboratory Results - last 48 hr 03/07/20 03/07/20 03/07/20 17:58 17:58 17:58 WBC 7.0 RBC 4.07 L Hgb 11.2 L Hct 38.0 L MCV 93.4 MCH 27.5 L MCHC 29.5 L RDW 14.4 Plt Count 380 MPV 10.8 H Neut % (Auto) 79.5 Lymph % (Auto) 13.4 Mckenzie % (Auto) 3.3 Eos % (Auto) 2.3 Baso % (Auto) 1.1 Neut # (Auto) 5.6 Lymph # (Auto) 0.9 Mckenzie # (Auto) 0.2 Eos # (Auto) 0.2 Baso # (Auto) 0.1 Nucleated RBC % (auto) 0 Nucleated RBCs # 0.0 PT INR APTT Specimen Type Sample Site ABG pH ABG pCO2 ABG pO2 ABG HCO3 ABG Base Excess Jovon Test Hematocrit O2 Delivery Device O2 Liters/Min Digital Strategy Specialist ID Sodium 134 L Potassium 5.0 Chloride 92 L Carbon Dioxide 18 L Anion Gap 29.0 H BUN 61 H Creatinine 8.1 H* GFR Calculation 6.7 L Glucose 104 Calculated Osmolality 277 L Calcium 9.1 Phosphorus Magnesium Iron TIBC % Saturation Unsat Iron Binding Ferritin Total Bilirubin 0.2 AST 6 ALT < 5 Alkaline Phosphatase 96 Creatine Kinase Troponin I 6 Hour Troponin I Hi Sens Del Troponin T Baseline 212 H* Troponin T 120 Minute Delta Troponin T NT-Pro-B Natriuret Pep > 05046 H Total Protein 7.7 Albumin 3.5 Globulin 4.2 Vitamin B12 Folate TSH Urine Color Urine Appearance Urine pH Ur Specific [place] Urine Protein Urine Glucose (UA) Urine Ketones Urine Blood Urine Nitrate Urine Bilirubin Urine Urobilinogen Ur Leukocyte Esterase Urine RBC Urine WBC Ur Squamous Epith Cells Urine Bacteria Ur Random Sodium Ur Random Chloride Urine Creatinine 03/07/20 03/07/20 03/08/20 19:58 20:02 01:13 WBC RBC Hgb Hct MCV MCH MCHC RDW Plt Count MPV Neut % (Auto) Lymph % (Auto) Mckenzie % (Auto) Eos % (Auto) Baso % (Auto) Neut # (Auto) Lymph # (Auto) Mckenzie # (Auto) Eos # (Auto) Baso # (Auto) Nucleated RBC % (auto) Nucleated RBCs # PT INR APTT Specimen Type Arterial Sample Site Radial, right ABG pH 7.29 L ABG pCO2 37.0 ABG pO2 131.0 H ABG HCO3 17.6 L ABG Base Excess -8.3 L Jovon Test Pos Hematocrit 34.2 L O2 Delivery Device Nc O2 Liters/Min Digital Strategy Specialist ID anonymous Sodium Potassium Chloride Carbon Dioxide Anion Gap BUN Creatinine GFR Calculation Glucose Calculated Osmolality Calcium Phosphorus Magnesium Iron TIBC % Saturation Unsat Iron Binding Ferritin Total Bilirubin AST ALT Alkaline Phosphatase Creatine Kinase Troponin I 6 Hour 216.4 H Troponin I Hi Sens Del 4.4 Troponin T Baseline Troponin T 120 Minute 214.8 H Delta Troponin T 2.8 NT-Pro-B Natriuret Pep Total Protein Albumin Globulin Vitamin B12 Folate TSH Urine Color Urine Appearance Urine pH Ur Specific [place] Urine Protein Urine Glucose (UA) Urine Ketones Urine Blood Urine Nitrate Urine Bilirubin Urine Urobilinogen Ur Leukocyte Esterase Urine RBC Urine WBC Ur Squamous Epith Cells Urine Bacteria Ur Random Sodium Ur Random Chloride Urine Creatinine 03/08/20 03/08/20 03/08/20 04:57 05:08 06:40 WBC 9.0 RBC 3.31 L Hgb 9.5 L Hct 32.5 L MCV 98.2 H D MCH 28.7 MCHC 29.2 L RDW 14.7 Plt Count 335 MPV 11.1 H Neut % (Auto) 82.8 Lymph % (Auto) 11.1 Mckenzie % (Auto) 4.1 Eos % (Auto) 0.3 Baso % (Auto) 0.6 Neut # (Auto) 7.4 Lymph # (Auto) 1.0 Mckenzie # (Auto) 0.4 Eos # (Auto) 0.0 Baso # (Auto) 0.1 Nucleated RBC % (auto) 0 Nucleated RBCs # 0.0 PT INR APTT Specimen Type Arterial Sample Site Brachial, left ABG pH 7.26 L ABG pCO2 37.3 ABG pO2 82.0 ABG HCO3 16.7 L ABG Base Excess -9.6 L Jovon Test N/a Hematocrit 31.1 L O2 Delivery Device Nc O2 Liters/Min 3.0 Digital Strategy Specialist ID harkr Sodium 134 L Potassium 5.0 Chloride 92 L Carbon Dioxide 17 L Anion Gap 30.0 H BUN 68 H Creatinine 8.7 H* GFR Calculation 6.2 L Glucose 119 H Calculated Osmolality 278 L Calcium 8.4 L Phosphorus Magnesium Iron TIBC % Saturation Unsat Iron Binding Ferritin Total Bilirubin AST ALT Alkaline Phosphatase Creatine Kinase 80 Troponin I 6 Hour Troponin I Hi Sens Del Troponin T Baseline Troponin T 120 Minute Delta Troponin T NT-Pro-B Natriuret Pep Total Protein Albumin Globulin Vitamin B12 Folate TSH 2.06 Urine Color Urine Appearance Urine pH Ur Specific [place] Urine Protein Urine Glucose (UA) Urine Ketones Urine Blood Urine Nitrate Urine Bilirubin Urine Urobilinogen Ur Leukocyte Esterase Urine RBC Urine WBC Ur Squamous Epith Cells Urine Bacteria Ur Random Sodium Ur Random Chloride Urine Creatinine 03/08/20 03/08/20 03/08/20 11:15 11:15 15:15 WBC RBC Hgb Hct MCV MCH MCHC RDW Plt Count MPV Neut % (Auto) Lymph % (Auto) Mckenzie % (Auto) Eos % (Auto) Baso % (Auto) Neut # (Auto) Lymph # (Auto) Mckenzie # (Auto) Eos # (Auto) Baso # (Auto) Nucleated RBC % (auto) Nucleated RBCs # PT INR APTT Specimen Type Sample Site ABG pH ABG pCO2 ABG pO2 ABG HCO3 ABG Base Excess Jovon Test Hematocrit O2 Delivery Device O2 Liters/Min Digital Strategy Specialist ID Sodium 135 L Potassium 5.8 H Chloride 93 L Carbon Dioxide 17 L Anion Gap 30.8 H BUN 72 H Creatinine 9.0 H* GFR Calculation 5.9 L Glucose 101 Calculated Osmolality 280 L Calcium 9.1 Phosphorus Magnesium Iron TIBC % Saturation Unsat Iron Binding Ferritin Total Bilirubin AST ALT Alkaline Phosphatase Creatine Kinase Troponin I 6 Hour Troponin I Hi Sens Del Troponin T Baseline Troponin T 120 Minute Delta Troponin T NT-Pro-B Natriuret Pep Total Protein Albumin Globulin Vitamin B12 Folate TSH Urine Color Brown Urine Appearance Sl hazy Urine pH 5.0 Ur Specific [place] 1.020 Urine Protein 3+ H Urine Glucose (UA) Norm Urine Ketones 1+ H Urine Blood 3+ H Urine Nitrate Negative Urine Bilirubin Neg Urine Urobilinogen Norm Ur Leukocyte Esterase Negative Urine RBC >100 H Urine WBC 0-4 H Ur Squamous Epith Cells Rare Urine Bacteria 2+ H Ur Random Sodium 22 Ur Random Chloride 23 Urine Creatinine 116 03/08/20 03/09/20 03/09/20 20:46 04:30 04:30 WBC 9.1 RBC 3.00 L Hgb 8.3 L Hct 28.1 L MCV 93.7 MCH 27.7 L MCHC 29.5 L RDW 14.9 Plt Count 320 MPV 10.9 H Neut % (Auto) 80.9 Lymph % (Auto) 10.7 Mckenzie % (Auto) 5.7 Eos % (Auto) 0.3 Baso % (Auto) 0.5 Neut # (Auto) 7.4 Lymph # (Auto) 1.0 Mckenzie # (Auto) 0.5 Eos # (Auto) 0.0 Baso # (Auto) 0.1 Nucleated RBC % (auto) 0 Nucleated RBCs # 0.0 PT INR APTT Specimen Type Sample Site ABG pH ABG pCO2 ABG pO2 ABG HCO3 ABG Base Excess Jovon Test Hematocrit O2 Delivery Device O2 Liters/Min Digital Strategy Specialist ID Sodium 135 L 132 L Potassium 4.1 4.1 Chloride 91 L 88 L Carbon Dioxide 17 L 20 L Anion Gap 31.1 H 28.1 H BUN 73 H 67 H Creatinine 8.8 H* 9.2 H* GFR Calculation 6.1 L 5.8 L Glucose 96 142 H Calculated Osmolality 279 L 276 L Calcium 9.0 8.6 Phosphorus 9.7 H* Magnesium 2.0 Iron TIBC % Saturation Unsat Iron Binding Ferritin Total Bilirubin 0.2 AST 5 ALT < 5 Alkaline Phosphatase 77 Creatine Kinase Troponin I 6 Hour Troponin I Hi Sens Del Troponin T Baseline Troponin T 120 Minute Delta Troponin T NT-Pro-B Natriuret Pep Total Protein 6.8 Albumin 2.9 L Globulin 3.9 Vitamin B12 Folate TSH Urine Color Urine Appearance Urine pH Ur Specific [place] Urine Protein Urine Glucose (UA) Urine Ketones Urine Blood Urine Nitrate Urine Bilirubin Urine Urobilinogen Ur Leukocyte Esterase Urine RBC Urine WBC Ur Squamous Epith Cells Urine Bacteria Ur Random Sodium Ur Random Chloride Urine Creatinine 03/09/20 03/09/20 03/09/20 04:30 04:30 04:30 WBC RBC Hgb Hct MCV MCH MCHC RDW Plt Count MPV Neut % (Auto) Lymph % (Auto) Mckenzie % (Auto) Eos % (Auto) Baso % (Auto) Neut # (Auto) Lymph # (Auto) Mckenzie # (Auto) Eos # (Auto) Baso # (Auto) Nucleated RBC % (auto) Nucleated RBCs # PT 15.10 H INR 1.16 APTT 45.4 H Specimen Type Sample Site ABG pH ABG pCO2 ABG pO2 ABG HCO3 ABG Base Excess Jovon Test Hematocrit O2 Delivery Device O2 Liters/Min Digital Strategy Specialist ID Sodium Potassium Chloride Carbon Dioxide Anion Gap BUN Creatinine GFR Calculation Glucose Calculated Osmolality Calcium Phosphorus Magnesium Iron 49 L TIBC 152 % Saturation 32.2 Unsat Iron Binding 103 L Ferritin 397 Total Bilirubin AST ALT Alkaline Phosphatase Creatine Kinase Troponin I 6 Hour Troponin I Hi Sens Del Troponin T Baseline Troponin T 120 Minute Delta Troponin T NT-Pro-B Natriuret Pep Total Protein Albumin Globulin Vitamin B12 609 Folate 6.9 TSH Urine Color Urine Appearance Urine pH Ur Specific [place] Urine Protein Urine Glucose (UA) Urine Ketones Urine Blood Urine Nitrate Urine Bilirubin Urine Urobilinogen Ur Leukocyte Esterase Urine RBC Urine WBC Ur Squamous Epith Cells Urine Bacteria Ur Random Sodium Ur Random Chloride Urine Creatinine Micro: Microbiology 03/08/20 11:15 Urine Culture - Preliminary Urine,Clean Catch Gram Negative Rods Cardiac Studies: No Data to Display
--- NOTE | 2020-03-09 10:27 | SC_ITS ---
WS: [id number] INTRAOPERATIVE TECHNIQUE: 5 Spot fluoroscopic images for intraoperative purposes. FLUOROSCOPY TIME: 104 seconds CLINICAL INFORMATION: split hemodialysis catheter placement COMPARISON: None. FINDINGS: Right dual-lumen central venous catheter partially visualized. Tips in the SVC. No pneumothorax. SC/C-arm FL for CVA [id number] IMPRESSION: Images obtained for intraoperative purposes.
--- NOTE | 2020-03-09 10:28 | P.CONIM_ITS ---
Providers/Reason For Consult Consulting Physican/Specialty*: Dr. Feliciano Reason for Consult*: Dialysis catheter. Attending Physician: David Feliciano MD Primary Care Provider: Shruti Wilcox DO History of Present Illness History of Present Illness Saul Lynn is a 64 year old male with known renal insufficiency who presented to the ER with worsening shortness of breath. Patient has COPD with pulmonary fibrosis and the ER he was noted to have elevated creatinine. Over the last few days in the hospital his creatinine has worsened and he will therefore need to start dialysis. Patient also has poor venous access. Denies history of clavicle fracture or central line placement. Review of Systems General: Reports: 10 or more systems reviewed and unremarkable except in HPI and below Meds/Allergies Home Medications and Allergies Home Medications Medication Instructions Recorded Confirmed Last Taken Type arformoterol 15 mcg/2 mL solution 15 mcg INHALATION BID ml 09/13/19 03/07/20 03/06/20 History for nebulization budesonide 0.5 mg/2 mL suspension 0.5 mg INHALATION BID 09/13/19 03/07/20 03/06/20 History for nebulization albuterol sulfate 90 mcg/actuation 2 puff INHALATION Q6H PRN #8.5 gm 03/06/20 03/07/20 Unknown Rx aerosol inhaler gabapentin 800 mg tablet 800 mg PO TID #270 tab 03/06/20 03/07/20 03/06/20 Rx lisinopril 10 mg PO DAILY 03/06/20 03/07/20 Unknown History omeprazole 40 mg capsule,delayed 40 mg PO DAILY #30 cap 03/06/20 03/07/20 Unknown Rx release propranolol See Rx Instructions .ROUTE .COMPLEX 03/06/20 03/07/20 Unknown History umeclidinium 62.5 mcg/actuation 1 inh INHALATION Q24H #30 each 03/06/20 03/07/20 03/06/20 Rx blister powder for inhalation Tussin Multi Sym Cold Cf 10 ml PO PRN 03/07/20 03/07/20 Unknown History albuterol sulfate 2.5 mg INHALATION Q4H PRN 03/07/20 03/07/20 Unknown History amlodipine [Norvasc] 10 mg PO DAILY 03/07/20 03/07/20 03/06/20 History atorvastatin 40 mg PO DAILY 03/07/20 03/07/20 Unknown History metoprolol tartrate 75 mg PO BID 03/07/20 03/07/20 03/06/20 History mupirocin 1 applic TOPICAL BID PRN 03/07/20 03/07/20 Unknown History phenylephrine-guaifenesin [Chest 2 tab PO TID PRN 03/07/20 03/07/20 03/07/20 History Congestion Relief PE] silver [SilvaSorb] 1 applic TOPICAL PRN 03/07/20 03/07/20 Unknown History Allergies Allergy/AdvReac Type Severity Reaction Status Date / Time meperidine [From Demerol] Allergy Unknown Verified 03/07/20 18:24 montelukast [From Singulair] Allergy Unknown Verified 03/07/20 18:24 Current Medications Current Medications Generic Name Dose Route Start Last Admin Trade Name Freq PRN Reason Stop Dose Admin Albuterol Sulfate 2 puff 03/09/20 07:49 03/09/20 08:27 Ventolin INHALATION 2 puff Q4H.RESPIRATORY PRN Administration SHORTNESS OF BREATH Famotidine 20 mg 03/08/20 08:30 03/09/20 07:40 Pepcid Inj IVP 20 mg Q12H DIGNA Administration Heparin Sodium (Beef Lung) 5,000 unit 03/08/20 08:30 03/09/20 07:39 Heparin SUBCUT 5,000 unit Q12H DIGNA Administration Hydralazine HCl 10 mg 03/08/20 08:15 03/09/20 06:08 Apresoline IVP 10 mg Q4H PRN Administration HYPERTENSION Ceftriaxone Sodium 1,000 mg/ 50 mls @ 100 mls/hr 03/08/20 15:00 03/08/20 17:49 Sodium Chloride IV 100 mls/hr Q24H DIGNA Administration Protocol Sodium Bicarbonate 100 meq/ 1,100 mls @ 50 mls/hr 03/08/20 17:45 03/08/20 17:47 Dextrose IV 50 mls/hr .Q22H DIGNA Administration Metoprolol Tartrate 25 mg 03/09/20 09:00 03/09/20 09:08 Lopressor PO 25 mg BID DIGNA Administration Sevelamer Carbonate 800 mg 03/07/20 23:55 03/09/20 09:04 Renvela PO 800 mg TID DIGNA Administration PFSH Acute PFSH: Medical History CKD (chronic kidney disease), stage III COPD (chronic obstructive pulmonary disease) Encephalitis due to human herpes simplex virus (HSV) Essential (primary) hypertension GERD (gastroesophageal reflux disease) Mixed hyperlipidemia Neuropathy Pulmonary fibrosis Severe chronic obstructive pulmonary disease Surgical History H/O hernia repair Family History Other Diabetes Social History Smoking and tobacco status: former smoker Alcohol intake: never Vitals/I&O/Wt Last Vital Signs Temp 97.9 F 03/09/20 08:00 Pulse 104 H 03/09/20 08:31 Resp 20 H 03/09/20 08:29 BP 169/93 03/09/20 08:00 Pulse Ox 94 03/09/20 08:29 03/08/20 03/09/20 03/09/20 22:59 06:59 14:59 Intake Total 200 / 1452.5 1052.5 / 1452.5 Output Total 100 / 350 100 / 350 30 / 30 Balance 100 / 1102.5 952.5 / 1102.5 -30 / -30 Weight last 48 hrs Weight 126 lb 1.6 oz Physical Exam Narrative: EXAM NARRATIVE: HEENT: Normocephalic Eye: Sclera /conjunctiva normal Respiratory and chest: Bilateral clear breath sounds on auscultation Cardiovascular: Normal S1 and S2 heart sounds Abdomen: Soft to palpation Neurological: Oriented to place person and time Skin: Intact, no lesions appreciated on gross exam Urinary Catheter Management^: Coude: Cath Placed During This Visit: no Reason for Continuing Indwelling Catheter: Accurate Measurement of Urinary Output in Critically Ill Patients Data Micro: Micro: Microbiology 03/08/20 11:15 Urine Culture - Pr eliminary Urine,Clean Catch Gram Negative R ods A&P Assessment and plan (1) Acute kidney injury superimposed on chronic kidney disease: 64-year-old gentleman with acute on chronic renal failure who needs a tunneled hemodialysis catheter. Procedure risks and benefits have been discussed with the patient We will also place a central line at the same time since patient has poor venous access. Status: Acute Coding Level of Care Code Acute Trench Shovel Operator for g Fwd Diagnoses Acute kidney injury superimposed on chronic kidney disease N17.9; N18.9
--- NOTE | 2020-03-09 10:51 | P.PN_ITS ---
Subjective Subjective: Interval history: I am seeing him in follow up for his renal failure. No improvement in his urine output Medications: Reviewed: Yes Vitals/I&O/Wt Last Vital Signs Temp 97.9 F 03/09/20 08:00 Pulse 93 03/09/20 10:30 Resp 20 H 03/09/20 10:30 BP 172/79 03/09/20 10:30 Pulse Ox 88 L 03/09/20 10:30 03/08/20 03/09/20 03/09/20 22:59 06:59 14:59 Intake Total 200 / 400 1052.5 / 1452.5 Output Total 100 / 250 100 / 350 30 / 30 Balance 100 / 150 952.5 / 1102.5 -30 / -30 Weight last 48 hrs Weight 57.198 kg Physical Exam Narrative: EXAM NARRATIVE: AAO * 3, not in distress Resp: AUSCULTATION: crackles Cardio: COMMON NORMALS: S1 normal heart sound present and S2 normal heart sound present HEART SOUNDS: S1 normal heart sound present and S2 normal heart sound present GI: AUSCULTATION: Yes normoactive bowel sounds Skin: COMMON NORMALS: no rashes or lesions noted GENERAL SKIN EXAM: no rashes or lesions noted Urinary Catheter Management^: Coude: Cath Placed During This Visit: no Reason for Continuing Indwelling Catheter: Accurate Measurement of Urinary Output in Critically Ill Patients Data : 03/09/20 04:30 03/09/20 04:30 Micro: Microbiology 03/08/20 11:15 Urine Culture - Preliminary Urine,Clean Catch Gram Negative Rods A&P Assessment and plan (1) Acute kidney injury superimposed on chronic kidney disease: No improvement in his urine output/kidney function. Will proceed with hemodialysis. Explained risks & benefits to pt & he agrees to proceed with dialysis. D/w with hospitalist regarding calling surgeon to place a temporary hemodialysis catheter. Once it is placed, will do dialysis for 2hrs with 2k, 2.5Ca Status: Acute (2) Essential (primary) hypertension: Monitor BP closely Status: Chronic (3) Anemia: Follow hb closely & transfuse if needed Status: Acute (4) Acidosis: Will correct with dialysis Status: Acute (5) Hyperkalemia: Will use 2k bath during dialysis Status: Acute (6) Hyponatremia: Will monitor Status: Acute Attestations Medical Necessity Statement*: Renal failure requiring dialysis Coding Level of Care Code Acute Laboratory Apparatus Glass Grinder for Chg Fwd Diagnoses Acute kidney injury superimposed on chronic kidney disease N17.9; N18.9 Essential (primary) hypertension I10 Anemia D64.9 Acidosis E87.2 Hyperkalemia E87.5 Hyponatremia E87.1
[2020-03-09] MEDS: heparin, porcine 1,000 unit/mL INJ 10 mL 10000 UNIT HE (11:21)
[2020-03-09] MEDS: lidocaine 1% INJ 20 mL INJECTION (11:27)
--- NOTE | 2020-03-09 11:29 | PM.OP ---
Operative Report Date of procedure: March 09, 2020 Pre-op Diagnosis: Acute Kidney Insufficiency Post-op diagnosis: same Procedure Done: Placement of 23 cm long tunneled 16 Chinese Johnathan split hemodialysis catheter in the right internal jugular vein Placement of 7 Chinese triple-lumen catheter in the left subclavian vein Ultrasound guidance and interpretation to access right internal jugular vein Fluoroscopic guidance and interpretation for placement of hemodialysis catheter and central line Pathology: none sent Surgeon: Jaylan Ramos Anesthesia: MAC Estimated blood loss (mL): 10 Condition: stable Disposition: ICU Procedure: The patient was taken to the operating room and placed under MAC. The chest and neck were prepped and draped in a sterile manner bilaterally. An ultrasound of the right internal jugular vein revealed patent flow, no thrombus identified. Using introducer needle the internal jugular vein on the right side was accessed and guidewire passed into the right atrium under fluoroscopy. Under fluoroscopy the location for the dialysis catheter was marked. Using 11 blade a skin incision was extended at the vein access site as well as the previously marked location on the right chest wall. The dialysis catheter was attached to the tunneler and passed subcutaneously, exiting at the venous access site. Serial dilators were passed over the guidewire under fluoroscopy. Finally the dilator peel-away sheath was passed over the guidewire and the inner dilator and guidewire was removed and the dialysis catheter was introduced into the right internal jugular vein as the peel-away sheath was removed. The tip of the catheter was noted to be in the right atrium. Both ports of the catheter tuyet blood and flushed easily. The catheter was sutured to the skin using 2-0 Prolene and the venous access site was closed with 4-0 Monocryl and Dermabond. A total of 5 mL of 1:10,000 heparin was injected into the 2 ports under dialysis catheter. 4 mL of 1% lidocaine was infiltrated under the subclavian vein on the left side at the site of planned entry. An introducer needle was used to access the right subclavian vein, a guidewire passed through the introducer needle and the needle was removed. Using 11 blade, a skin incision was made at the guidewire entry site. Dilator was passed over the guidewire and a 7 Chinese triple-lumen central venous catheter was passed over the guidewire and the guidewire was removed. The catheter was sutured to the skin at 18 cm. All 3 ports tuyet blood and flushed easily. Fluoroscopic guidance and interpretation for passage of guidewire and dilator and placement of 2 catheter in the right atrium.
--- NOTE | 2020-03-09 11:56 | PM.PN ---
Subjective Subjective: Interval history: Saul reports he really does not feel any better. Slight shortness of breath when he lies down. No vomiting. No abdominal discomfort. Medications: Reviewed: Yes Vitals/I&O/Wt Last Vital Signs Temp 97.9 F 03/09/20 08:00 Pulse 79 03/09/20 11:09 Resp 20 H 03/09/20 10:30 BP 178/101 03/09/20 11:09 Pulse Ox 100 03/09/20 11:09 03/08/20 03/09/20 03/09/20 22:59 06:59 14:59 Intake Total 200 / 400 1052.5 / 1452.5 Output Total 100 / 250 100 / 350 30 / 30 Balance 100 / 150 952.5 / 1102.5 -30 / -30 Weight last 48 hrs Weight 57.198 kg Physical Exam Narrative: EXAM NARRATIVE: General exam no obvious distress Cardiovascular regular rate and rhythm Lungs diminished breath sounds bilaterally but no wheezing or crackles Abdomen is soft, positive bowel sounds Extremities no cyanosis clubbing or edema Urinary Catheter Management^: Coude: Cath Placed During This Visit: no Reason for Continuing Indwelling Catheter: Accurate Measurement of Urinary Output in Critically Ill Patients Data : 03/09/20 04:30 03/09/20 04:30 Micro: Microbiology 03/08/20 11:15 Urine Culture - Preliminary Urine,Clean Catch Gram Negative Rods A&P Assessment and plan (1) Acute kidney injury superimposed on chronic kidney disease: Etiology unknown. Was taking aspirin daily, recently put on lisinopril. Renal function has not improved. He has been making a small amount of urine. Nephrology has evaluated, and dialysis will be initiated Continue Almonte No hydronephrosis on CT scan, renal ultrasound Bladder appeared abnormal on CT, ultrasound and this may require further outpatient evaluation CK was checked and not elevated Surgery consulted for dialysis access and central line. On bicarbonate drip per nephrology but this can likely be discontinued after dialysis Status: Acute (2) Hypertensive emergency: Nicardipine was discontinued Increase metoprolol Continue hydralazine PRN After dialysis will decide what further medication adjustments will be needed. Status: Acute Additional A&P Information Possible UTI. Placed on Rocephin. Urine is growing gram-negative rods. Anemia. Iron studies. Check stool Hemoccult Pulmonary fibrosis. Currently pulmonary status seems at baseline Malnourished. Following surgery, start on renal diet History of GERD. Start Pepcid Full code Heparin for DVT prophylaxis Attestations Medical Necessity Statement*: Needs continued hospital stay for close monitoring secondary to severe acute renal failure. Critical Care Time: 32 minutes spent at bedside coordinating care, reviewing chart, interviewing the patient, in regards to decision making regarding institution of dialysis, decisions regarding placement of dialysis catheter as well as central line. Coding Level of Care Code Acute Telephone Information Supervisor for g Fwd Diagnoses Acute kidney injury superimposed on chronic kidney disease N17.9; N18.9 Hypertensive emergency I16.1
--- NOTE | 2020-03-09 15:01 | ECG_ITS ---
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 Measurements Intervals [place] Rate: 93 P: 81 MA: 160 QRS: 68 QRSD: 118 T: 56 QT: 372 QTc: 465 Interpretive Statements SINUS RHYTHM POSSIBLE LEFT ATRIAL ENLARGEMENT [-0.1mV P WAVE IN V1/V2] INCOMPLETE RIGHT BUNDLE BRANCH BLOCK [90+ ms QRS DURATION, TERMINAL R IN V1/V2, 40+ ms S IN I/aVL/V4/V5/V6] Compared to ECG 03/08/2020 01:14:46 Sinus tachycardia no longer present ST (T wave) deviation no longer present Electronically Signed On 03-10-2020 15:11:02 CDT by lBayne Vivas M.D. [id number]
[2020-03-09 15:02] LABS: Blood Urea Nitrogen 49 mg/dL (8-23); Calcium 8.5 mg/dL (8.5-10.5); Carbon Dioxide 23 mmol/L (22-29); Chloride 92 mmol/L (98-107); Glomerular Filtration Rate 8.5 mL/min (90-130); Glucose 143 mg/dL (65-115); Osmolality Calculated 281 mOsm/kg (285-295); Sodium 135 mmol/L (136-145)
--- NOTE | 2020-03-09 15:10 | XRR_ITS ---
PROCEDURE INFORMATION: Exam: XR Chest, 1 View Exam date and time: 03/09/2020 3:17 PM Age: 64 years old Clinical indication: Chest pain TECHNIQUE: Imaging protocol: XR of the chest Views: 1 view. COMPARISON: CR XR chest 1V portable [id number] 03/07/2020 6:24 PM FINDINGS: Tubes, catheters and devices: Dual lumen central venous catheter tip projects over the superior vena cava. Left subclavian central venous catheter tip projects over the superior vena cava. Lungs: Streaky densities at the lung apices are most consistent with pleural thickening and/or scarring. There are hazy bibasilar opacities. There are pulmonary parenchymal calcifications consistent with remote granulomatous organism exposure. Pleural space: Costophrenic angles are not visualized and pleural effusions cannot be excluded. Heart/Mediastinum: Unremarkable. No cardiomegaly. Bones/joints: Unremarkable. Soft tissues: Heart size not optimally evaluated with a single AP view of the chest. COPD morphology of the chest with prominent interstitial markings. XR/XR chest 1V portable [id number] IMPRESSION: 1. Hazy bibasilar opacities are nonspecific and may represent atelectasis. Pneumonia cannot be excluded. 2. Findings consistent with COPD.
--- NOTE | 2020-03-09 15:13 | PC.NURSE ---
Pt complaining of chest pain. Hydralazine give for high blood pressure. Pt looks a little more distressed than earlier, lung sounds diminshed on left side. Dr. Feliciano notified. New orders
[2020-03-09] MEDS: nitroglycerin 1 gm/inch oint Pkt 0.5 INCH TOPICAL (15:20)
[2020-03-09] MEDS: morphine 4 mg/mL SDV 1 mL 2 MG IVP ×2 (15:24→20:19)
--- NOTE | 2020-03-09 15:43 | PM.EVENT ---
Event Note Event Note: Recheck of patient secondary to critical illness. He was having some chest discomfort as well. EKG with no ischemia. Chest x-ray performed demonstrated no obvious pneumothorax, official reading pending. Oxygen saturations were low and dyspneic. Nitroglycerin ointment placed and morphine given with patient relief. He is now seems to be resting comfortably. ABGs pending. Continue to monitor closely. Additional 24 minutes of ICU care.
[2020-03-09 15:47] LABS: ABG PCO2 56.7 mmHg (35-45); ABG PH Result 7.29 (7.35-7.45); Arterial Blood Gas Hematocrit 28.6 % (42-52); Base Excess ABG 0.3 mmol/L (-2.0-2.0); Blood Gas Allen Test Pos; Blood Gas Sample Site Radial, left; Blood Gas Sample Type Arterial; HCO3 ABG 27.4 mmol/L (22-26); Oxygen Device NC
--- NOTE | 2020-03-09 15:53 | PC.NURSE ---
Morphine and Nitro given. Pt is resting well now. Dialysis continues.
[2020-03-09] MEDS: cefTRIAXone 1,000 MG in sodium chloride 0.9% (plus) 50 ML 100 MG IV (16:39)
[2020-03-09 17:21] LABS: Glucose Point of Care 140 mg/dL (70-110)
[2020-03-09] MEDS: nitroglycerin 1 gm/inch oint Pkt 1 INCH TOPICAL ×2 (17:56→22:20)
--- NOTE | 2020-03-09 18:00 | PC.NURSE ---
Pt put on bipap do to being lethargic and not taking deep breathes. 02 84% on 3 liters
[2020-03-10] VITALS (43 sets, daily range): BP systolic 119–187; BP diastolic 64–110; PULSE 77–113; RESP 7–26; TEMP 36.9–37.2; O2SAT 83–96
[2020-03-10] MEDS: hyDRALAzine 20 mg/mL INJ 1 mL 10 MG IVP (02:59)
[2020-03-10] MEDS: morphine 4 mg/mL SDV 1 mL 2 MG IVP ×2 (02:59→21:15)
[2020-03-10 04:01] LABS: Basophils % 0.3 %; Eosinophils # 0.1 10^3/uL (0.0-0.8); Eosinophils % 1.1 %; Hematocrit 26.8 % (42.0-52.0); Lymphocytes # 0.8 10^3/uL (0.8-4.8); Lymphocytes % 11.7 %; Mean Corpuscular HGB Conc 29.9 g/dL (30.0-36.0); Mean Corpuscular Hemoglobin 27.9 pg (28.0-34.0); Mean Corpuscular Volume 93.4 fL (80-94); Monocytes # 0.7 10^3/uL (0.2-0.9); Monocytes % 10.3 %; Neutrophils # 5.4 10^3/uL (1.8-7.7); Neutrophils % 75.8 %; Nucleated Red Blood Cells % 0 %; Platelet Count 276 10^3/cmm (130-400); Red Blood Count 2.87 10^6/uL (4.1-5.3); Red Cell Distribution Width 15.2 % (12.1-15.1); White Blood Count 7.1 10^3/uL (4.0-10.0)
[2020-03-10 04:24] LABS: Alanine Aminotransferase < 5 U/L (0-41); Alkaline Phosphatase 81 IU/L (40-130); Anion Gap 19.9 (5-19); Aspartate Amino Transferase 5 U/L (0-40); Blood Urea Nitrogen 36 mg/dL (8-23); Calcium 8.7 mg/dL (8.5-10.5); Carbon Dioxide 28 mmol/L (22-29); Chloride 93 mmol/L (98-107); Globulin 3.6 g/dL (1.3-4.6); Glomerular Filtration Rate 9.6 mL/min (90-130); Glucose 140 mg/dL (65-115); Magnesium 1.9 mg/dL (1.7-2.3); Osmolality Calculated 284 mOsm/kg (285-295); Phosphorus 6.8 mg/dL (2.5-4.5); Potassium 3.9 mmol/L (3.5-5.1); Sodium 137 mmol/L (136-145); Total Bilirubin 0.2 mg/dL (0.15-1.2); Total Protein 6.6 g/dL (6.6-8.7)
[2020-03-10] MEDS: nitroglycerin 1 gm/inch oint Pkt 1 INCH TOPICAL ×3 (06:07→18:18)
--- NOTE | 2020-03-10 07:56 | P.PN_ITS ---
Subjective Subjective: Interval history: Patient received dialysis yesterday, decreased urine output overnight. No issues with central line or hemodialysis catheter Vitals/I&O/Wt Last Vital Signs Temp 99 F 03/10/20 04:00 Pulse 96 03/10/20 06:00 Resp 14 03/10/20 06:00 BP 179/94 03/10/20 06:00 Pulse Ox 92 03/10/20 06:00 03/09/20 03/10/20 03/10/20 22:59 06:59 14:59 Intake Total 1150 / 1150 Output Total 55 / 140 45 / 140 Balance 1095 / 1010 -45 / 1010 Physical Exam Narrative: EXAM NARRATIVE: Right chest: Hemodialysis catheter in place, no cellulitis or hematoma, left subclavian vein functioning well Urinary Catheter Management^: Coude: Cath Placed During This Visit: no Reason for Continuing Indwelling Catheter: Accurate Measurement of Urinary Output in Critically Ill Patients Data : 03/10/20 03:28 03/10/20 03:28 Micro: Microbiology 03/08/20 11:15 Urine Culture - Preliminary Urine,Clean Catch Gram Negative Rods A&P Assessment and plan (1) CKD (chronic kidney disease), stage III: 64-year-old male with acute on chronic renal failure status post hemodialysis catheter placement and left subclavian catheter placement, no issues with the catheter Status: Chronic Attestations Medical Necessity Statement*: Acute on chronic renal failure Coding Level of Care Code Acute Plant Health Care Technician for g Fwd Diagnoses CKD (chronic kidney disease), stage III N18.3
[2020-03-10] MEDS: albuterol 8 gm MDI 2 PUFF INHALATION ×4 (08:36→20:13)
[2020-03-10] MEDS: sevelamer 800 mg Tablet PO ×3 (08:45→20:00)
[2020-03-10] MEDS: heparin 5,000 unit/mL INJ 1 mL 5000 UNIT SUBCUT ×2 (08:46→19:56)
[2020-03-10] MEDS: amlodipine 5 mg Tablet PO (08:47)
[2020-03-10] MEDS: pantoprazole DR 40 mg Tablet PO (08:47)
[2020-03-10] MEDS: metoprolol tartrate 50 mg Tablet PO ×2 (08:47→18:17)
[2020-03-10] MEDS: sodium chloride 0.9% 1,000 ML 50 ML IV (08:51)
--- NOTE | 2020-03-10 09:48 | DCPLANNER ---
Pg 2 of IM updated and then phoned; Son; Chuck [phone] and left description & purpose of IM on his voice mail. Also made it clear that no d/c date is planned yet. Left number so that he can call back with questions or comments. Copy left at bedside.
--- NOTE | 2020-03-10 10:41 | PM.PN ---
Subjective Subjective: Interval history: Saul reports he feels little bit better this morning. Not short of breath. No chest discomfort. Medications: Reviewed: Yes Vitals/I&O/Wt Last Vital Signs Temp 99 F 03/10/20 04:00 Pulse 112 H 03/10/20 09:00 Resp 18 03/10/20 09:00 BP 183/94 03/10/20 09:00 Pulse Ox 88 L 03/10/20 09:00 03/09/20 03/10/20 03/10/20 22:59 06:59 14:59 Intake Total 1150 / 1150 Output Total 55 / 95 45 / 140 Balance 1095 / 1055 -45 / 1010 Physical Exam Narrative: EXAM NARRATIVE: General exam no obvious distress Cardiovascular regular rate and rhythm, catheter right chest Lungs diminished breath sounds bilaterally but no wheezing or crackles Abdomen is soft, positive bowel sounds Extremities no cyanosis clubbing or edema Urinary Catheter Management^: Coude: Cath Placed During This Visit: no Reason for Continuing Indwelling Catheter: Accurate Measurement of Urinary Output in Critically Ill Patients Data : 03/10/20 03:28 03/10/20 03:28 Micro: Microbiology 03/08/20 11:15 Urine Culture - Final Urine,Clean Catch Escherichia coli esbl A&P Assessment and plan (1) Acute kidney injury superimposed on chronic kidney disease: Etiology unknown. Was taking aspirin daily, recently put on lisinopril. Only 110 cc of urine output Nephrology has evaluated, and dialysis was initiated yesterday Continue Almonte No hydronephrosis on CT scan, renal ultrasound Bladder appeared abnormal on CT, ultrasound and this may require further outpatient evaluation. Kae consulted while in the hospital to place Almonte CK was checked and not elevated Surgery consulted for dialysis access and central line. These have been placed Significant decreased p.o. intake and nausea this morning so IV fluids at 50 cc an hour will be continued. Status: Acute (2) Hypertensive emergency: Nicardipine was discontinued Continue metoprolol Continue hydralazine PRN Start amlodipine Ointment After dialysis will decide what further medication adjustments will be needed. Status: Acute Additional A&P Information Possible UTI. Placed on Rocephin. Urine now showing ESBL. Changed to Primaxin Anemia. Awaiting stool Hemoccult. No iron deficiency on lab. Pulmonary fibrosis. Currently pulmonary status seems at baseline Malnourished. Following surgery, start on renal diet History of GERD. Protonix initiated Full code Heparin for DVT prophylaxis Attestations Medical Necessity Statement*: Needs continued hospital stay in the ICU secondary to acute renal failure with need for dialysis. Critical Care Time: 33 minutes spent in critical care time at bedside reviewing patient's laboratory, interviewing the patient considering his hypertensive urgency with multiple medicines with need for adjustment as well as acute renal failure on hemodialysis. Multiorgan dysfunction and multiple comorbidities make prognosis significantly guarded. Coding Level of Care Code Acute Process Safety Management Engineer for Antonig Fwd Diagnoses Acute kidney injury superimposed on chronic kidney disease N17.9; N18.9 Hypertensive emergency I16.1
[2020-03-10] MEDS: ondansetron 2 mg/ML SDV 2 mL 4 MG IVP (10:50)
--- NOTE | 2020-03-10 14:46 | P.PN_ITS ---
Subjective Subjective: Interval history: I am seeing him in follow of renal failure. He got hemodialysis yesterday. No chest pain or shortness of breath Medications: Reviewed: Yes Vitals/I&O/Wt Last Vital Signs Temp 99 F 03/10/20 04:00 Pulse 80 03/10/20 12:54 Resp 18 03/10/20 12:50 BP 183/94 03/10/20 09:00 Pulse Ox 93 03/10/20 12:50 03/09/20 03/10/20 03/10/20 22:59 06:59 14:59 Intake Total 1150 / 1150 Output Total 55 / 95 45 / 140 Balance 1095 / 1055 -45 / 1010 Physical Exam Narrative: EXAM NARRATIVE: Pt awake, not in distress Resp: COMMON NORMALS: clear to auscultation bilaterally AUSCULTATION: clear to auscultation bilaterally Cardio: COMMON NORMALS: S1 normal heart sound present and S2 normal heart luther nd present HEART SOUNDS: S1 normal heart sound present and S2 normal heart sound present GI: AUSCULTATION: Yes normoactive bowel sounds Extremity: COMMON NORMALS: no clubbing, cyanosis or edema Skin: COMMON NORMALS: no rashes or lesions noted GENERAL SKIN EXAM: no rashes or lesions noted Urinary Catheter Management^: Coude: Cath Placed During This Visit: no Reason for Continuing Indwelling Catheter: Accurate Measurement of Urinary Output in Critically Ill Patients Data : 03/10/20 03:28 03/10/20 03:28 Micro: Microbiology 03/08/20 11:15 Urine Culture - Final Urine,Clean Catch Escherichia coli esbl Attestation for Other Data: I personally reviewed and interpreted the following: A&P Assessment and plan (1) Acute kidney injury superimposed on chronic kidney disease: Pt got hemodialysis yesterday. Tolerated it well. No acute indication for dialysis today. Will plan hemodialysis on wednesday if kidney function is still worse Status: Acute (2) Acidosis: Got dialysis yesterday Status: Acute (3) Anemia: Follow hb Status: Acute (4) Hyperkalemia: Resolved Status: Acute (5) Hyponatremia: Resolved Status: Acute (6) Essential (primary) hypertension: BP under control Status: Chronic Attestations Medical Necessity Statement*: Renal failure Coding Level of Care Code Acute Right Of Way Cutter for g Fwd Exam Detailed Diagnoses Acute kidney injury superimposed on chronic kidney disease N17.9; N18.9 Acidosis E87.2 Anemia D64.9 Hyperkalemia E87.5 Hyponatremia E87.1 Essential (primary) hypertension I10
--- NOTE | 2020-03-10 20:17 | PC.NURSE ---
Shift Assessment: Upon entering room, patient staed, What the F do you want. I stated my name, title and explained to patient that i need to complete his head to toe assessment. Patient agreed. I asked patient if i can see his 2 central lines. Patient stated, I hope you are not going to take that mother Fer out. I stated to patient that I only want to look and see if their are any issues with either central lines. Patient stated, whatever. See IV documentation. Patient had 2000 night time medications due. See MAR. Patient refused Night time medication and heparin injection. Stated, Im tired of getting Fing poked. Refusal documented.
[2020-03-10] MEDS: LORazepam 2 mg/mL INJ 1 mL IVP (22:20)
--- NOTE | 2020-03-10 22:54 | PC.NURSE ---
Patient Update: 2199: Patient became hostile towards staff members. Cussing and yelling loudly at staff. Stated he was not putting his oxygen back on and that we are lying to him. He wanted a police superintendent. Reoriented patient and was unsuccessful. This nurse asked the patient 5 different times to please, let us place his nasal cannula on him. Patient continues to refuse. States we are lying to him and giving him medications through his oxygen tubing. Asked patient if he was in pain. Patient stated, Im always in fing pain. Morphine PRN 2 mg IVP was given for pain at 2114. See MAR. Dr. Montes notified. Ativan 2 mg IVP given at 2141. Daughter, Rachelle Malloy, was called to see if she can calm patient down. Stated she will come to the hospital. After multiple attempts to redirect patient to place NC and SpO2 sensor on, patient agreed to place sensor on only. O2 monitor showed 58% SpO2. Patient refused to place NC on after multiple attempts. Daughter arrives, approved through Quality Systems Technician, and is able to redirect patient and place his NC on. NC on at 4L/NC. after 10 minutes patient began to rest with a oxygen saturation of 96%. Daughter states this happens every single night. She would like speak with vp digital marketing social media and crm about Home Health or Hospice options. Also, daughter stated patient was a DNR. ORder signed and in chart. Referral placed in patient chart of . Daughter left to go back home. Patient is resting quietly. Respirations even. Oxygen sat reads 96% on 4L/NC. BP and HR WNL.
[2020-03-11] VITALS (34 sets, daily range): BP systolic 127–170; BP diastolic 48–95; PULSE 70–97; RESP 10–23; TEMP 36.2–36.7; O2SAT 85–100
[2020-03-11 04:27] LABS: Basophils % 0.3 %; Eosinophils # 0.1 10^3/uL (0.0-0.8); Eosinophils % 1.5 %; Hematocrit 27.1 % (42.0-52.0); Lymphocytes # 0.6 10^3/uL (0.8-4.8); Lymphocytes % 9.3 %; Mean Corpuscular HGB Conc 29.5 g/dL (30.0-36.0); Mean Corpuscular Hemoglobin 28.3 pg (28.0-34.0); Mean Corpuscular Volume 95.8 fL (80-94); Monocytes # 0.5 10^3/uL (0.2-0.9); Monocytes % 8.1 %; Neutrophils # 5.3 10^3/uL (1.8-7.7); Neutrophils % 80.3 %; Nucleated Red Blood Cells % 0 %; Platelet Count 306 10^3/cmm (130-400); Red Blood Count 2.83 10^6/uL (4.1-5.3); Red Cell Distribution Width 15.7 % (12.1-15.1); White Blood Count 6.6 10^3/uL (4.0-10.0)
[2020-03-11] MEDS: nitroglycerin 1 gm/inch oint Pkt 1 INCH TOPICAL ×2 (05:16)
[2020-03-11] MEDS: sodium chloride 0.9% 1,000 ML 50 ML IV (05:16)
[2020-03-11 05:59] LABS: Alanine Aminotransferase < 5 U/L (0-41); Albumin Level 2.9 g/dL (3.5-5.2); Alkaline Phosphatase 69 IU/L (40-130); Anion Gap 18.5 (5-19); Aspartate Amino Transferase 7 U/L (0-40); Blood Urea Nitrogen 46 mg/dL (8-23); Calcium 8.8 mg/dL (8.5-10.5); Carbon Dioxide 27 mmol/L (22-29); Chloride 95 mmol/L (98-107); Glomerular Filtration Rate 8.3 mL/min (90-130); Glucose 102 mg/dL (65-115); Magnesium 1.9 mg/dL (1.7-2.3); Osmolality Calculated 280 mOsm/kg (285-295); Phosphorus 7.3 mg/dL (2.5-4.5); Potassium 4.5 mmol/L (3.5-5.1); Sodium 136 mmol/L (136-145); Total Bilirubin 0.2 mg/dL (0.15-1.2); Total Protein 5.9 g/dL (6.6-8.7)
[2020-03-11] MEDS: morphine 4 mg/mL SDV 1 mL 2 MG IVP ×3 (08:02→23:08)
[2020-03-11] MEDS: amlodipine 5 mg Tablet PO (08:03)
[2020-03-11] MEDS: sevelamer 800 mg Tablet PO ×2 (08:03→12:41)
[2020-03-11] MEDS: pantoprazole DR 40 mg Tablet PO (08:04)
[2020-03-11] MEDS: metoprolol tartrate 50 mg Tablet PO ×2 (08:04→17:37)
[2020-03-11] MEDS: heparin 5,000 unit/mL INJ 1 mL 5000 UNIT SUBCUT (08:04)
[2020-03-11] MEDS: albuterol 8 gm MDI 2 PUFF INHALATION (08:43)
--- NOTE | 2020-03-11 10:32 | P.PN_ITS ---
Subjective Subjective: Interval history: Cr today at 6.7. Hb 8.0, pending HD today. urine output 270ml. Per nursing report from overnight, patient is very agitated overnight for which he received Ativan. Since then he has been a little more drowsy. This morning his oxygen saturation dropped to 79% which required him to be placed on BiPAP. He is currently on a AVAPS mode. This morning he is only able to open his eyes and tell me his name. He is unable to engage in any meaningful conversation with me at this time. He is spontaneously moving extremities in bed however is overall very lethargic. Per nursing report from overnight, patient's daughter had to come in last night after which patient calmed down a little bit and told her that he wanted to transition to hospice and did not want any further medical interventions. I am unable to confirm this with the patient or his daughter at this time. I have left a voicemail to call us back. Medications: Reviewed: Yes Vitals/I&O/Wt Last Vital Signs Temp 97.9 F 03/11/20 08:00 Pulse 73 03/11/20 09:57 Resp 15 03/11/20 09:00 BP 145/79 03/11/20 09:00 Pulse Ox 93 03/11/20 09:57 03/10/20 03/11/20 03/11/20 22:59 06:59 14:59 Intake Total 120 / 350 1000 / 1350 220 / 220 Output Total 20 / 70 200 / 270 Balance 100 / 280 800 / 1080 220 / 220 Physical Exam Narrative: EXAM NARRATIVE: GEN: Drowsy, lethargic, opens eyes to calling name and states his name but otherwise unable to engage in meaningful conversation. CVS: S1S2 N RS: Crackles over B/L lung bases Abd: Soft, nt/nd , bs+ CONTINUOUS IMPROVEMENT ANALYST: Unable to assess, however moving all extremities in bed weakly. Urinary Catheter Management^: Coude: Cath Placed During This Visit: no Reason for Continuing Indwelling Catheter: Accurate Measurement of Urinary Output in Critically Ill Patients Data : 03/11/20 03:45 03/11/20 05:20 Micro: Microbiology 03/08/20 11:15 Urine Culture - Final Urine,Clean Catch Escherichia coli esbl A&P Assessment and plan (1) Acute kidney injury superimposed on chronic kidney disease: Etiology unknown. Was taking aspirin daily, recently put on lisinopril which is currently discontinued. Only 270 cc of urine output Nephrology has evaluated, and dialysis has been initiated Elevated free light chains, but normal K/L ratio, No hydronephrosis on CT scan, renal ultrasound Bladder appeared abnormal on CT with changes of cystitis, nodule seen on ultrasound not clearly visualized. This will need further outpatietn evlautaion. Urology consult appreciated, placed difficult denton, false anterior channel visualized CK was checked and not elevated Last HIV checked in 05/2019- WNL. Recheck HIV and also obtain hepatitis serology. Status: Acute (2) Hypertensive emergency: This is now resolved Nicardipine was discontinued Continue metoprolol Continue hydralazine PRN Continue amlodipine Status: Acute (3) Chronic respiratory failure with hypoxia: Underlying respiratory insufficiency 2/2 ILD for which he in on home 02 This morning desaturated down to 79%, which perhaps may be due to underlying sedation from Ativan. However cannot rule out worsening IPF. Change nebulization to DuoNebs every 6 hours standing. Patient is on BiPAP this morning. He is currently on a vent setting. He has previously declined intubat ion will check ABG now.. Status: Acute Additional A&P Information Possible UTI, currently on Primaxin Anemia. Awaiting stool Hemoccult. No iron deficiency on lab. Previous history of b12 deficiency with anemia and neuropathy, most recent b12 level WNL. May be related to CKD Malnourished. On renal diet History of GERD. Protonix initiated DNR/DNI Heparin for DVT prophylaxis Attestations Medical Necessity Statement*: Worsening respiratory status today, ongoing need for hemodialysis. Coding Level of Care Code Acute Electro Mechanical Solar Technician for Chg Fwd Diagnoses Acute kidney injury superimposed on chronic kidney disease N17.9; N18.9 Hypertensive emergency I16.1 Chronic respiratory failure with hypoxia J96.11
[2020-03-11 11:40] LABS: ABG PCO2 55.9 mmHg (35-45); Arterial Blood Gas Hematocrit 25.9 % (42-52); Base Excess ABG 0.4 mmol/L (-2.0-2.0); Blood Gas Allen Test Pos; Blood Gas Sample Site Radial, right; Blood Gas Sample Type Arterial; HCO3 ABG 27.3 mmol/L (22-26); Oxygen Device BIPAP; PO2 ABG 58.2 mmHg (80.0-100.0)
--- NOTE | 2020-03-11 11:56 | PC.NURSE ---
patient started the morning angry, pulling off cpap and saying he is done and tired. nasal canula placed but at 4 liters he was sating 78. turned it to 6 and let him calm. sats came up to 97. weaned back to 4 liters. during this time he was given his morning meds. oral care and nasal care given, chan trimmed, pain treated, cvl dressing done, feet washed and non skid socks placed. patient tolerated it all well and was thankful for the care. his rt came and was concerned about his high oxygen rate on the nc. he was placed on cpap at 28% but only had a sat of 78. adjustments were made and his sat read 92 jemima 40% abg performed, patient remains hypoxic. daughter would like to take him home with hospice. partner integration planner made aware.
[2020-03-11] MEDS: isosorbide mononitrate ER 30 mg Tablet PO (12:41)
[2020-03-11] MEDS: ipratropium-albuterol 3 mL Neb INHALATION (13:59)
--- NOTE | 2020-03-11 14:21 | PM.PN ---
Subjective Subjective: Interval history: Remains sleepy on interview, although appears to be comfortable. Urine output 270ml Minimal global edema Hemodynamics remain stable Medications: Reviewed: Yes Vitals/I&O/Wt Last Vital Signs Temp 97.9 F 03/11/20 08:00 Pulse 87 03/11/20 14:07 Resp 13 03/11/20 14:00 BP 145/79 03/11/20 09:00 Pulse Ox 90 03/11/20 14:00 03/10/20 03/11/20 03/11/20 22:59 06:59 14:59 Intake Total 120 / 350 1000 / 1350 220 / 220 Output Total 200 / 270 Balance 100 / 280 800 / 1080 220 / 220 Physical Exam Narrative: EXAM NARRATIVE: Constitutional: sleepy on facemask HEENT: Wet mucosa, no jvp, non icteric Lungs: Bilaterally clear without discernible wheeze, rales in all lung zones CVS: S1 S2, no murmurs Abdo: Soft, BS ok Ext 4: Minimal edema, peripheral perfusion with no cyanosis Neurological: Grossly non-focal Urinary Catheter Management^: Coude: Cath Placed During This Visit: no Reason for Continuing Indwelling Catheter: Accurate Measurement of Urinary Output in Critically Ill Patients Data : 03/11/20 03:45 03/11/20 05:20 A&P Additional A&P Information 1. DUDLEY - oliguric - unclear etiology; possibly due to hemodynamics, hypoxia leading to ATN but I'm concerned also about a primary GN - will need dialysis today - am labs with close monitoring for recovery - strict Is and Os - will broaden serology and send ANCAs, ASO, anti-GBM - complements noted to be normal - may benefit from renal biopsy if he is stable from respiratory perspective and he desires full active care - avoid the usuals 2. Lytes appear to be stable 3. SOB from advanced COPD - heavy smoker his whole life 2 packs a day - ? underlying pulm/renal syndrome; much less likely 4. Hemodynamics stable 5. Discussion of plan of care on going MD Kennedy Mendieta Rrenal Care Interview and exam performed via telemed with aid of bedside RN [phone] Attestations Medical Necessity Statement*: eval for DUDLEY Coding Level of Care Code Acute Vegetable Harvest Machine Operator for Chg Jono
--- NOTE | 2020-03-11 15:05 | PC.NURSE ---
this am the patient stated he was done with doing everything and wanted to be left alone . he was given oral care and pain treatment , then he allowed me to wash and shave him. he expressed pain to most forms of touch on his chest area and face. the nares are scabbed and sore , his cvl was crusted with old blood and this was changed and cleaned. once he was bathed and a warm banket was given he was resting well. his daughter called twice this shift wanting to know how we could get the ball rolling for him to come home with hospice. she knows that he is tired of trying to deal with the pain, the breathing issues, and trying to eat when he no longer cares to . dr Troy notified that in order to start the process of hospice she needs an order. she would like to talk to the patient about this but he has been in and out of coherence today and his daughter would be his decision maker if he no longer can. at 1400 he was pulling at the cpap again. he no longer is could maintain his sats above 86 on an fio2 of 35 and he was panicing. morphne was given, oral care performed and cpap resumed at 40% maintaining his sats at 88%
--- NOTE | 2020-03-11 17:57 | PC.NURSE ---
mask removed to give patient a sip of water with a pill. he remembered someone being rude to hm. he said he remembered his bath and shave and liked that. his sats dropped to 79 on 2 lnc. bipap replaced and his sats returned to 89 90. waitiing for his daughter to come up and see him and stop the bipap as well as the dialysis . i held his hand until he fell back to sleep.
--- NOTE | 2020-03-11 20:26 | PC.NURSE ---
Transfer Note Patient placed on comfort measures. Orders to move to Med Surg [id number]. Report given to Winsome BLACKBURN. Daughter Rachelle Malloy notified of transfer. No further questions or concerns at this time.
[2020-03-12] VITALS (8 sets, daily range): BP systolic 119–152; BP diastolic 64–77; PULSE 48–98; RESP 14–18; TEMP 36.4–37.1; O2SAT 88–90
[2020-03-12 10:35] LABS: Anti-streptolysin O <50 IU/mL (<200)
--- NOTE | 2020-03-12 10:41 | PC.SOCIAL ---
IMM Updated Updated pt's daughter on Pg 2 IMM. She verbally understands. No questions voiced. Provided pt/daughter a copy & left on pt's bedside table. Signed, dated, & timed the copy in pt's chart.
--- NOTE | 2020-03-12 10:59 | PM.PN ---
Subjective Subjective: Interval history: drowsy but comfortable. No new issues overnight, off BIAP Medications: Reviewed: Yes Vitals/I&O/Wt Last Vital Signs Temp 98.7 F 03/12/20 07:49 Pulse 48 L 03/12/20 07:54 Resp 16 03/12/20 07:54 BP 152/70 03/12/20 07:49 Pulse Ox 88 L 03/12/20 07:54 03/11/20 03/12/20 03/12/20 22:59 06:59 14:59 Intake Total 150 / 420 Output Total 120 / 120 0 / 120 Balance 30 / 300 0 / 300 Physical Exam Narrative: EXAM NARRATIVE: Constitutional: sleepy on facemask HEENT: Wet mucosa, no jvp, non icteric Lungs: Bilaterally clear without discernible wheeze, rales in all lung zones CVS: S1 S2, no murmurs Abdo: Soft, BS ok Ext 4: Minimal edema, peripheral perfusion with no cyanosis Neurological: Grossly non-focal Urinary Catheter Management^: Coude: Cath Placed During This Visit: no Reason for Continuing Indwelling Catheter: Hospice/Comfort/Palliative Care Data : 03/11/20 03:45 03/11/20 05:20 A&P Additional A&P Information Patient now comfort care and in view of this I will sign off at this time. Please do not hesitate to contact me should the situation change and I may be assistance in his care Saul Connor MD [facility] Renal Care Interview and exam performed via telemed with aid of bedside RN [phone] Attestations Medical Necessity Statement*: mgmt of renal failure Coding Level of Care Code Acute Mangle Tender for Hermes De La Cruz
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
[2020-03-16 12:26] LABS: ANCA Interp Negative (Negative)
== END 2020-03-12 16:02 | disposition hospice, home (50) | DRG 683 ==
LOC: ER 19:45 → CSU 19:48 → ICU 22:12 → MEDSURG 03-11 20:28
PROVIDERS: Emergency Medicine; Internal Medicine; Internal Medicine Nephrology; Surgery; Admitting Provider Internal Medicine; PCP Family Medicine; Visit Provider Student in an Organized Health Care Education/Training Program
PROC: 05HM33Z Insertion of Infusion Device into Right Internal Jugular Vein, Percutaneous Approach (ICD-10-PCS; principal; 2020-03-09 11:00)
PROC: 05HM33Z Insertion of Infusion Device into Right Internal Jugular Vein, Percutaneous Approach (ICD-10-PCS; 2020-03-09 11:00)
DX: N17.9 Acute kidney failure, unspecified (principal); I16.1 Hypertensive emergency; J96.11 Chronic respiratory failure with hypoxia; N39.0 Urinary tract infection, site not specified; E87.2 Acidosis; E87.1 Hypo-osmolality and hyponatremia; Z16.12 Extended spectrum beta lactamase (ESBL) resistance; E46 Unspecified protein-calorie malnutrition; Z68.1 Body mass index [BMI] 19.9 or less, adult; I13.0 Hypertensive heart and chronic kidney disease with heart failure and stage 1 through stage 4 chronic kidney disease, or unspecified chronic kidney disease; Z51.5 Encounter for palliative care; Z66 Do not resuscitate; N18.3 Chronic kidney disease, stage 3 (moderate); Z99.81 Dependence on supplemental oxygen; J44.9 Chronic obstructive pulmonary disease, unspecified; E53.8 Deficiency of other specified B group vitamins; G62.9 Polyneuropathy, unspecified; J84.10 Pulmonary fibrosis, unspecified; K21.9 Gastro-esophageal reflux disease without esophagitis; D63.1 Anemia in chronic kidney disease; B96.89 Other specified bacterial agents as the cause of diseases classified elsewhere; E87.5 Hyperkalemia; B00.9 Herpesviral infection, unspecified; E78.00 Pure hypercholesterolemia, unspecified; E78.2 Mixed hyperlipidemia; Z87.891 Personal history of nicotine dependence; I50.9 Heart failure, unspecified
CPT/HCPCS: 12345; 36415; 36416; 36592; 36600; 51702; 71045; 74176; 76000; 76770; 77001; 80048; 80053; 80061; 80069; 81001; 82306; 82310; 82436; 82550; 82570; 82607; 82728; 82746; 82803; 82962; 83516; 83540; 83550; 83735; 83880; 83883; 83970; 84100; 84155; 84165; 84300; 84443; 84484; 85025; 85610; 85730; 86060; 86160; 87077; 87086; 87186; 90935; 93005; 93306; 94640; 94660; 96372; 96375; 99284; C1750; C1751; J0360; J0610; J0696; J0743; J1644; J1815; J1940; J2001; J2060; J2250; J2270; J2405; J2704; J3010; J3490; J3535; J7030; J7040; J7050; J7611; Q3014